=== PATIENT | female | born 1995 | race Caucasian/White ===

== ENCOUNTER 2022-07-11 15:56 | Emergency (ER) | payer MEDICAID, SELFPAY ==
--- NOTE | 2022-07-11 16:24 | ECG_ITS ---
APPROVED REPORT Exam: Resting ECG HR:118 bpm ECG Measurements Heart Rate [address] 141 P 38 QRSd 74 QRS 47 QT 318 T 26 QTc 388 Conclusion SINUS TACHYCARDIA LOW QRS VOLTAGE IN PRECORDIAL LEADS [QRS DEFLECTION < 1.0 mV IN CHEST LEADS] NONSPECIFIC T-WAVE ABNORMALITY ABNORMAL RHYTHM ECG UNCONFIRMED REPORT Electronically signed by : Tulio Hidalgo MD 07/12/2022 14:13:10
[2022-07-11 16:31] VITALS: BP 121/85; PULSE 126; RESP 16; TEMP 37.8; O2SAT 98; BMI 29.3
[2022-07-11 16:46] LABS: Microscopic, Urine URINE MICROSCOPIC (MICROSCOPIC)
[2022-07-11 16:51] LABS: Basophils % 0.4 % (0.1-2.0); Eosinophils # 0.1 K/mm3 (0.0-0.4); Hematocrit 42.5 % (37.0-47.0); Hemoglobin 14.2 g/dL (12.2-16.2); Lymphocytes # 0.4 K/mm3 (0.7-4.5); Lymphocytes % 4.1 % (10-50); Mean Corpuscular HGB Conc 33.5 g/dL (31.8-35.4); Mean Corpuscular Hemoglobin 27.3 pg (27.0-31.2); Mean Corpuscular Volume 81.6 fl (81-99); Mean Platelet Volume 10.3 fl (7.4-10.4); Monocytes # 0.2 K/mm3 (0.1-1.0); Monocytes % 1.8 % (1.7-9.3); Neutrophils # 8.9 K/mm3 (1.8-7.8); Neutrophils % 92.7 % (37.0-80.0); Platelet Count 210 K/mm3 (142-424); Red Blood Count 5.21 M/mm3 (4.20-5.40); Red Cell Distribution Width 14.6 % (11.5-17.5); White Blood Count 9.6 K/mm3 (4.8-10.8)
[2022-07-11 16:52] LABS: Chloride 107 mmol/L (98-107)
[2022-07-11 16:54] LABS: Blood Urea Nitrogen 13 mg/dl (7-17); Creatinine Clearance Estimated 118 mL/min (50-200); Estimated Glomerular Filt Rate 77 ml/min (>60); GFR (African American) 93 ML/MIN (>60)
[2022-07-11 16:55] LABS: Alanine Aminotransferase 20 U/L (12-78); Albumin Level 4.6 g/dl (3.5-5.0); Albumin/Globulin Ratio 1.2 (1.1-1.8); Alkaline Phosphatase 72 U/L (38-126); Aspartate Amino Transferase 40 U/L (14-36); Bilirubin,Total 0.7 mg/dl (0.2-1.3); Carbon Dioxide 24 mmol/L (22.0-30.0); Globulin 3.9 g/dL (1.3-3.2); Total Protein,Serum 8.5 g/dl (6.3-8.2)
[2022-07-11 16:56] LABS: Calcium 8.6 mg/dl (8.4-10.2); Glucose 144 mg/dl (74-100); MANUAL DIFFERENTIAL MANUAL DIFFERENTIAL (MANUAL DIFF)
[2022-07-11 17:00] VITALS: BP 107/78; PULSE 118; O2SAT 98
[2022-07-11 17:00] LABS: Appearance,Urine CLEAR (Clear); Blood, Urine Negative (Negative); Color,Urine YELLOW (Yellow); Glucose,Urine (UA) Negative (Negative); Ketones,Urine Negative (Negative); Leukocyte Esterase,Urine Negative (Negative); Nitrate,Urine Negative (Negative); PH,Urine 5.5 (5.0-8.5); Protein,Urine Negative (Negative); Specific Gravity, Urine >= 1.030 (1.005-1.030); Urobilinogen,Urine 0.2 EU/dl (0.2)
[2022-07-11 17:08] LABS: Bilirubin,Urine 2+ (Negative)
[2022-07-11 17:09] LABS: Bacteria,Urine Trace /lpf; Urine Pregnancy, HCG Qual. Negative (Negative)
[2022-07-11 17:16] LABS: Sodium 139 mmol/L (136-145)
--- NOTE | 2022-07-11 17:24 | HMH.EDGENADL ---
Discharge Plan Disposition Patient Disposition: Home, Self-Care Condition: Good Prescriptions Prescriptions: New ondansetron HCl 4 mg tablet 4 mg PO DAILY PRN (Reason: nausea and vomiting) Qty: 10 0RF Referrals Follow up/Referrals: Provider,Referral, [Primary Care Provider] - See instructions Activity Restrictions/Add. Instructions Additional Instructions/Restrictions: Follow-up with your primary care provider guarding this visit to the emergency department and further management to ensure improvement in symptoms. Be sure to stay hydrated. Tylenol and Motrin every 6 hours with food and water to prevent GI upset to treat fevers, body aches. Take Zofran every 6 hours as needed for nausea and vomiting. Clinical Impressions Clinical Impression: Vomiting and diarrhea Discharge ED Provider: Lefty Yang General Adult HPI General Chief complaint: Dizziness Stated complaint: Dizziness,Vomiting Time Seen by Provider: 07/11/22 16:29 Mode of Arrival: Wheelchair Source of Information: Patient Limitations: No Limitations Description of Symptoms (Recalled from ER Triage Doc. by RN): pt reports dizziness, nausea, that began this am. History of Present Illness HPI narrative: Is a 26-year-old female with history of , cholecystectomy who is presenting with vomiting, nausea, abdominal pain. Patient states that she began having mild epigastric abdominal pain accompanied by numerous episodes of vomiting is nonbloody nonbilious that started this morning. Abdominal pain is mild in intensity, epigastric, does not radiate, associated with vomiting. Denies diarrhea, fevers, chills, chest pain, shortness of breath, cough, sore throat. She has had no urinary frequency, urgency, dysuria, hematuria, hematochezia, or constipation. Patient has been unable to keep down much in terms of solids or liquids, so came to the ER for further evaluation. Related Data Previous Rx's Medication Instructions Recorded ondansetron HCl 4 mg tablet 4 mg PO DAILY PRN nausea and 07/11/22 vomiting #10 tabs Allergies Allergy/AdvReac Type Severity Reaction Status Date / Time tramadol Allergy Verified 07/11/22 16:35 [facility] Disclaimer: The information contained in this section may have been updated after the patient was seen, as this information can be updated by other users. Social History Smoking Status: Never smoker alcohol intake: never current occupational status: employed Travel in the last 8 weeks: None ROS Obtained: Yes All systems reviewed & no additional complaints except as documented Physical Exam General General appearance: alert and in no apparent distress Head Head exam: atraumatic, normocephalic and normal inspection Eye Eye exam: Present normal appearance, PERRL and EOMI ENT ENT exam: Present normal exam, normal oropharynx, mucous membranes moist, TM's normal bilaterally and normal external ear exam Neck Neck exam: Present normal inspection, full ROM and trachea midline; Absent meningismus or lymphadenopathy Chest Chest inspection: Present normal inspection and symmetric chest wall rise; Absent tenderness Respiratory Respiratory exam: Present normal lung sounds bilaterally; Absent respiratory distress Cardiovascular Cardiovascular exam: Present regular rate and normal rhythm; Absent JVD Abdominal Exam Abdominal exam: Present soft and normal bowel sounds; Absent distention, tenderness or guarding Extremities Exam Extremities exam: Present normal inspection, full ROM and normal capillary refill; Absent calf tenderness Back Exam Back exam: Present normal inspection; Absent tenderness Neurological Exam Neurological exam: Present alert and oriented X3 Psychiatric Psychiatric exam: Present normal affect and normal mood Skin Skin exam: Present warm, dry, intact and normal color Lymphatic Lymphatic Findings: no adenopathy Medical Decision Making Medical Records Medical records reviewed: Yes I re
[2022-07-11 17:30] VITALS: BP 110/73; PULSE 108; RESP 18; O2SAT 100
[2022-07-11 17:48] LABS: Lymphocytes % 7 % (10-50); Monocytes % 1 % (2-9); Neutrophils % 92 % (42-76); Platelet Estimate Normal; RBC Morphology Normal; Total Cells Counted 100
--- NOTE | 2022-07-11 18:06 | PC.NURSE ---
REPEAT TEMP 100.2
[2022-07-11 18:11] LABS: Coronavirus 19, PCR Not Detected (NotDetected); Influenza A, PCR Not Detected (NotDetected); Influenza B, PCR Not Detected (NotDetected)
--- NOTE | 2022-07-11 18:56 | CT_ITS ---
PROCEDURE INFORMATION: Exam: CT Abdomen And Pelvis With Contrast Exam date and time: 07/11/2022 7:22 PM Age: 26 years old Clinical indication: Abdominal pain; Flank; Right lower quadrant (rlq); Prior surgery; Additional info: Rlq and R flank pain TECHNIQUE: Imaging protocol: Computed tomography of the abdomen and pelvis with contrast. Radiation optimization: All CT scans at this facility use at least one of these dose optimization techniques: automated exposure control; mA and/or kV adjustment per patient size (includes targeted exams where dose is matched to clinical indication); or iterative reconstruction. Contrast material: ISOVUE; Contrast volume: 75 ml; Contrast route: IV; REPORTING DATA: Count of CT and Cardiac NM exams in prior 12 months: This patient has received 0 known CTs and 0 known cardiac nuclear medicine studies in the 12 months prior to the current study. COMPARISON: No relevant prior studies available. FINDINGS: Liver: Unremarkable. Gallbladder and bile ducts: Status post cholecystectomy. Pancreas: Unremarkable. Spleen: Unremarkable. Adrenal glands: Unremarkable. Kidneys and ureters: Unremarkable. Stomach and bowel: No evidence of bowel obstruction or other acute gastrointestinal pathology. Appendix: Appendix is visualized and is normal. Intraperitoneal space: Trace simple, low-density free fluid in the pelvis, likely physiologic. No pneumoperitoneum. Vasculature: Unremarkable. Lymph nodes: Unremarkable. Urinary bladder: Unremarkable. Reproductive: Unremarkable. Bones/joints: No acute osseous abnormality. Soft tissues: Unremarkable. IMPRESSION: No acute findings in the abdomen or pelvis.
--- NOTE | 2022-07-11 18:59 | PC.NURSE ---
rad notified of ct order
[2022-07-11 19:00] VITALS: BP 119/86; PULSE 118; O2SAT 97
[2022-07-11 19:30] VITALS: BP 122/84; PULSE 113; O2SAT 97
[2022-07-11 20:24] VITALS: BP 122/84; PULSE 110; RESP 18; TEMP 36.6; O2SAT 98
== END 2022-07-11 20:43 | disposition home or self-care (01) ==
LOC: UTC 16:09 → ER 16:10
PROVIDERS: Emergency Provider Emergency Medicine
DX: R11.2 Nausea with vomiting, unspecified (principal); R19.7 Diarrhea, unspecified; R42 Dizziness and giddiness; R10.13 Epigastric pain; Z90.49 Acquired absence of other specified parts of digestive tract; Z20.822 Contact with and (suspected) exposure to COVID-19
CPT/HCPCS: 74177; 80053; 81001; 81025; 85007; 85025; 93005; 96361; 96374; 96375; 96376; 99285; C9803; J2405; Q9967; U0003; U0005

== ENCOUNTER 2023-03-01 17:23 | Emergency (ER) | payer MEDICAID, SELFPAY ==
[2023-03-01 17:24] VITALS: BP 127/92; PULSE 92; RESP 18; TEMP 36.7; O2SAT 100; BMI 29.2
[2023-03-01 17:59] LABS: Microscopic, Urine URINE MICROSCOPIC (MICROSCOPIC)
[2023-03-01 18:04] LABS: Basophils # 0.1 K/mm3 (0-0.2); Basophils % 0.8 % (0.1-2.0); Eosinophils # 0.2 K/mm3 (0.0-0.4); Hematocrit 41.9 % (37.0-47.0); Hemoglobin 14.5 g/dL (12.2-16.2); Lymphocytes # 2.5 K/mm3 (0.7-4.5); Mean Corpuscular HGB Conc 34.7 g/dL (31.8-35.4); Mean Corpuscular Hemoglobin 29.7 pg (27.0-31.2); Mean Corpuscular Volume 85.6 fl (81-99); Mean Platelet Volume 9.3 fl (7.4-10.4); Monocytes # 0.4 K/mm3 (0.1-1.0); Monocytes % 5.1 % (1.7-9.3); Neutrophils # 4.6 K/mm3 (1.8-7.8); Neutrophils % 60.2 % (37.0-80.0); Platelet Count 240 K/mm3 (142-424); Red Cell Distribution Width 12.8 % (11.5-17.5); White Blood Count 7.7 K/mm3 (4.8-10.8)
[2023-03-01 18:09] LABS: Alanine Aminotransferase 18 U/L (12-78); Albumin Level 4.7 g/dl (3.5-5.0); Albumin/Globulin Ratio 1.2 (1.1-1.8); Alkaline Phosphatase 53 U/L (38-126); Aspartate Amino Transferase 34 U/L (14-36); Bilirubin,Total 0.7 mg/dl (0.2-1.3); Blood Urea Nitrogen 15 mg/dl (7-17); Calcium 9.8 mg/dl (8.4-10.2); Carbon Dioxide 29 mmol/L (22.0-30.0); Chloride 101 mmol/L (98-107); Creatinine Clearance Estimated 131 mL/min (50-200); Estimated Glomerular Filt Rate 87 ml/min (>60); GFR (African American) 106 ML/MIN (>60); Glucose 92 mg/dl (74-100); Lipase 98 U/L (23-300); Sodium 141 mmol/L (136-145); Total Protein,Serum 8.7 g/dl (6.3-8.2)
[2023-03-01 18:15] LABS: Appearance,Urine CLEAR (Clear); Bilirubin,Urine Negative (Negative); Blood, Urine Negative (Negative); Color,Urine YELLOW (Yellow); Glucose,Urine (UA) Negative (Negative); Ketones,Urine Negative (Negative); Leukocyte Esterase,Urine Negative (Negative); Nitrate,Urine Negative (Negative); Protein,Urine Negative (Negative); Specific Gravity, Urine 1.015 (1.005-1.030)
--- NOTE | 2023-03-01 18:16 | HMH.EDGENADL ---
Discharge Plan Disposition Patient Disposition: Home, Self-Care Prescriptions Prescriptions: New prochlorperazine maleate [Compazine] 10 mg tablet 10 mg PO Q6H PRN (Reason: nausea and vomiting) 1 Days Qty: 20 0RF No Action ondansetron HCl 4 mg tablet 4 mg PO DAILY PRN (Reason: nausea and vomiting) Qty: 10 0RF Referrals Follow up/Referrals: Provider,Referral, MD [Primary Care Provider] - See instructions Activity Restrictions/Add. Instructions Additional Instructions/Restrictions: Call your family doctor to establish care for this visit to the emergency department and schedule follow-up within 48 hours to ensure improvement. If you have any worsening of your condition or any other concerning signs or symptoms, return to the emergency department or your primary care doctor for further evaluation. Clinical Impressions Clinical Impression: Gastroenteritis, Abdominal pain Instructions Patient Instructions: DI for Acute Abdominal Pain Discharge ED Provider: Lefty Yang General Adult HPI General Chief complaint: Abdominal Pain Stated complaint: lower abd pain Time Seen by Provider: 03/01/23 17:34 Mode of Arrival: Ambulatory Source of Information: Patient Limitations: No Limitations Description of Symptoms (Recalled from ER Triage Doc. by RN): c/o lower right quad pain that goes into her pelvic area for 3 days, one week ago she had nausea and has been vomiting. Pt states that she was having sex last night and her stomach felt tighter and she felt pain in her stomach which is not usual. Denies any vaginal bleeding, discharge or burning with urination. History of Present Illness HPI narrative: 27-year-old female history of cholecystectomy, section presenting with abdominal pain/pelvic pain. Patient states that started 3 days ago. Started with nausea and nonbloody, nonbilious vomiting x3 episodes over 3 days. Started having right lower quadrant abdominal pain radiating downward into her pelvis. No abnormal vaginal discharge or bleeding. Last period was November of this year, approximately 4 months ago, patient states this is normal for her. Denies flank pain, dysuria, hematuria, frequency urgency, diarrhea, constipation, fevers or chills, or any other concerns. Currently sexually active and does not use protection Related Data Previous Rx's Medication Instructions Recorded ondansetron HCl 4 mg tablet 4 mg PO DAILY PRN nausea and 07/11/22 vomiting #10 tabs prochlorperazine maleate 10 mg 10 mg PO Q6H PRN nausea and 10/12/23 tablet (Compazine) vomiting 24 hours #20 tabs Allergies Allergy/AdvReac Type Severity Reaction Status Date / Time tramadol Allergy Verified 07/11/22 16:35 [facility] Disclaimer: The information contained in this section may have been updated after the patient was seen, as this information can be updated by other users. Social History (Updated 07/11/22 @ 20:20 by Lefty aYng MD) Smoking Status: Never smoker alcohol intake: never current occupational status: employed Travel in the last 8 weeks: None ROS Obtained: Yes All systems reviewed & no additional complaints except as documented Physical Exam General General appearance: alert and in no apparent distress Head Head exam: atraumatic and normocephalic Eye Eye exam: Present normal appearance, PERRL and EOMI ENT ENT exam: Present mucous membranes moist Neck Neck exam: Present normal inspection, full ROM and trachea midline Respiratory Respiratory exam: Absent respiratory distress, wheezes, stridor, accessory muscle use or prolonged expiratory phase Cardiovascular Cardiovascular exam: Present normal rhythm Abdominal Exam Abdominal exam: Present soft and tenderness; Absent distention, guarding, rebound, rigidity or normal bowel sounds Abdominal tenderness: Present suprapubic and mild; Absent RUQ, RLQ, LUQ or LLQ Extremities Exam Extremities exam: Absent edema Neurological Exam Neurological exam: Pr
[2023-03-01 18:18] LABS: RBC,Urine Occasional #/hpf (0-3); Squamous Epithelial Cell,Urine Occasional #/hpf (0-5)
[2023-03-01 18:28] LABS: HCG,Quantitative < 2 mIU/ml (0-5.42)
[2023-03-01 18:30] VITALS: BP 91/61; PULSE 107; O2SAT 97
--- NOTE | 2023-03-01 18:52 | PC.NURSE ---
Rounded on pt. Pt made aware of need to collect more urine. No needs voiced.
[2023-03-01 19:22] VITALS: BP 112/76; PULSE 94; O2SAT 99
[2023-03-01 19:30] VITALS: BP 100/78; PULSE 94; O2SAT 98
[2023-03-01 19:56] VITALS: BP 100/78; PULSE 84; RESP 18; TEMP 36.6; O2SAT 98
== END 2023-03-01 19:50 | disposition home or self-care (01) ==
PROVIDERS: Emergency Provider Emergency Medicine
DX: R10.30 Lower abdominal pain, unspecified (principal); K52.9 Noninfective gastroenteritis and colitis, unspecified; R11.2 Nausea with vomiting, unspecified
CPT/HCPCS: 80053; 81001; 83690; 84702; 85025; 96361; 96374; 96375; 99284; J0131

== ENCOUNTER 2023-08-25 19:28 | Emergency (ER) | payer MEDICAID, SELFPAY ==
[2023-08-25 19:29] VITALS: BP 131/91; PULSE 100; RESP 16; TEMP 36.6; O2SAT 99; BMI 28.6
--- NOTE | 2023-08-25 19:41 | XR_ITS ---
PROCEDURE INFORMATION: Exam: XR Left Hip Exam date and time: 08/25/2023 7:52 PM Age: 27 years old Clinical indication: Hip pain; Left hip; Additional info: Fall, L hip pain TECHNIQUE: Imaging protocol: Radiologic exam of the left hip. Views: 2 or 3 views hip with pelvis when performed. COMPARISON: CT ABDOMEN PELVIS W CON 07/11/2022 7:22 PM FINDINGS: Bones/joints: No acute fracture or dislocation. The SI joints, hip joints and pubic symphysis are unremarkable. Normal bone mineralization.. Soft tissues: Unremarkable. IMPRESSION: No acute findings.
--- NOTE | 2023-08-25 19:46 | HMH.EDGENADL ---
Discharge Plan Disposition Patient Disposition: Home, Self-Care Prescriptions Prescriptions: New dexamethasone 6 mg tablet 6 mg PO DAILY Qty: 5 0RF methocarbamol 750 mg tablet 1,500 mg PO TID 5 Days Qty: 30 0RF No Action ondansetron HCl 4 mg tablet 4 mg PO DAILY PRN (Reason: nausea and vomiting) Qty: 10 0RF prochlorperazine maleate [Compazine] 10 mg tablet 10 mg PO Q6H PRN (Reason: nausea and vomiting) 1 Days Qty: 20 0RF Referrals Follow up/Referrals: Provider,MD Vania [Primary Care Provider] - See instructions Elias Oh MD [Staff Physician] - See instructions Luis E Main DO [Staff Physician] - See instructions Activity Restrictions/Add. Instructions Additional Instructions/Restrictions: Call your family doctor to establish care for this visit to the emergency department and schedule follow-up within 48 hours to ensure improvement. If you have any worsening of your condition or any other concerning signs or symptoms, return to the emergency department or your primary care doctor for further evaluation. Take Tylenol 1000 mg every 6 hours (4 times daily) and ibuprofen 400 mg every 6 hours (4 times daily) as needed with food and water to prevent GI upset and kidney damage. Clinical Impressions Clinical Impression: Left sciatic nerve pain Discharge ED Provider: Lefty Yang General Adult HPI General Chief complaint: Extremity Injury, Lower Stated complaint: hip and back pain Time Seen by Provider: 08/25/23 19:30 Mode of Arrival: Wheelchair Source of Information: Patient Limitations: No Limitations Description of Symptoms (Recalled from ER Triage Doc. by RN): pt states a couple of days ago was stepping over baby gate and lt leg didnt clear gate and she fell. pt c/o lt hip and lower back pain radiating down lt leg History of Present Illness HPI narrative: This is a 27-year-old female with history of chronic pain after epidural presenting with back and left buttock pain. Atraumatic. Patient does state that she fell a couple days prior to this visit fell on her left side. States that she thinks it may be related to that. She is having back pain radiate from her mid back down the left flank into the left buttock and down left leg. No weakness. No bowel or dysfunction no other red flag signs. Please note that above description of symptoms, in this electronic medical record under categorization of recalled from ER triage doctor by RN are reflective of an initial nursing assessment, however, is not reflective of my full history and physical exam that was personally taken and clarified. Consequentially, this preceding description of symptoms, which may include the patient's categorized chief complaint in the EMR, do not reflect my personal clinical impression, and the ultimate description of history of present illness and patient stated complaints should be deferred to this section of the note. Unless stated otherwise or congruent with this section of the note, additional signs, symptoms, or incongruence should be interpreted as inaccurate with my clinical impression. Related Data Previous Rx's Medication Instructions Recorded ondansetron HCl 4 mg tablet 4 mg PO DAILY PRN nausea and 07/11/22 vomiting #10 tabs prochlorperazine maleate 10 mg 10 mg PO Q6H PRN nausea and 03/01/23 tablet (Compazine) vomiting 24 hours #20 tabs dexamethasone 6 mg tablet 6 mg PO DAILY #5 tabs 08/25/23 methocarbamol 750 mg tablet 1,500 mg (2 x 750 mg) PO TID 5 08/25/23 days #30 tabs Allergies Allergy/AdvReac Type Severity Reaction Status Date / Time tramadol Allergy Verified 07/11/22 16:35 [facility] Disclaimer: The information contained in this section may have been updated after the patient was seen, as this information can be updated by other users. Social History (Updated 07/11/22 @ 20:20 by Lefty Yang MD) Smoking Status: Never smoker alcohol intake: never current occupational status: employed Travel in the last 8 weeks: None ROS Obtained: Yes All systems reviewed & no additional complaints except as documented Physical Exam General General appearance: alert and in no apparent distress Head Head exam: atraumatic and normocephalic Eye Eye exam: Present normal appearance, PERRL and EOMI ENT ENT exam: Present mucous membranes moist Neck Neck exam: Present normal inspection, full ROM and trachea midline Respiratory Respiratory exam: Absent respiratory distress, wheezes, stridor, accessory muscle use or prolonged expiratory phase Cardiovascular Cardiovascular exam: Present normal rhythm Abdominal Exam Abdominal exam: Present soft; Absent distention, tenderness, guarding, rebound or rigidity Extremities Exam Extremities exam: Absent edema Back Exam Back exam: Present paraspinal tenderness (Lumbar spinal), vertebral tenderness (Midline lumbar spine) and straight leg raise (L) Neurological Exam Neurological exam: Present alert, oriented X3, CN II-XII intact and normal gait; Absent motor sensory deficit Skin Skin exam: Present warm and dry; Absent diaphoresis or erythema Medical Decision Making Medical Records Medical records reviewed: Yes I reviewed the patient's medical records. Jordan Inquiry Pt receiving controlled substance: No Jordan was queried for this patient: No Vital Signs: 08/25/23 19:29 Temperature 97.8 F Temperature Source Oral Pulse Rate [Right] 100 H Respiratory Rate 16 Blood Pressure [Right Arm] 131/91 H Blood Pressure Mean [Right Arm] 104 02 Sat by Pulse Oximetry 99 Lab Data Lab Results 08/25/23 20:25: Urine Color Yellow, Urine Appearance Clear, Urine pH 6.0, Ur Specific [place] 1.020, Urine Protein Negative, Urine Glucose (UA) Negative, Urine Ketones Negative, Urine Blood Negative, Urine Nitrate Negative, Urine Bilirubin Negative, Urine Urobilinogen 0.2, Ur Leukocyte Esterase Negative, Urine RBC None, Urine WBC None, Ur Squamous Epith Cells 5-10, Urine Bacteria Trace, Urine HCG, Qual Negative Orders (Tests/Meds): ED MEDICATIONS Discontinued Medications Generic Name Dose Route Start Last Admin Trade Name Freq PRN Reason Stop Dose Admin Dexamethasone 10 mg 08/25/23 19:41 08/25/23 19:50 Dexamethasone 4mg Tablet PO 08/25/23 19:42 10 mg ONCE ONE Administration Methocarbamol 750 mg 08/25/23 19:41 08/25/23 19:51 Methocarbamol 500mg Tablet PO 08/25/23 19:42 750 mg ONCE ONE Administration ORDERS Category Date Time Status Hip XR left minimum 2 views [XR hip LT 2-3V w/pelvis] Exams 08/25/23 19:41 Taken Stat UA [Urinalysis and Microscopic] Stat Lab 08/25/23 20:25 Completed Urine , HCG Qual. Stat Lab 08/25/23 20:25 Completed Medical Decision Narrative: This is a 27-year-old female with history of chronic pain after epidural presenting with back and left buttock pain. Atraumatic. Patient does state that she fell a couple days prior to this visit fell on her left side. States that she thinks it may be related to that. She is having back pain radiate from her mid back down the left flank into the left buttock and down left leg. No weakness. No bowel or dysfunction no other red flag signs. On arrival, patient hemodynamically stable, ambulatory, but hurting, so placed in wheelchair. Midline and paraspinal lumbar spinal tenderness. Neurovascular intact lower extremities. Straight leg positive. Differential includes sciatic nerve pain, radiculopathy, sciatica, disc herniation, hip pathology, nephrolithiasis, , among others. Patient given dexamethasone and methocarbamol. X-ray negative, urine without UTI or . On reevaluation, patient still in pain. Reassurance given. Because patient at baseline without signs or symptoms of clinical decompensation, deemed appropriate for discharge. Results were relayed to patient who voiced understanding and were agreeable to outpatient management and follow up. I discussed my clinical impression with patient and answered all questions. At this time, the evidence for any other entities in the differential is insufficient to warrant any further testing or ED observation. This was explained as well. Advisory was given that persistent or worsening symptoms require further evaluation. I confirmed the understanding of this discussion. Critical Care Critical Care Time Critical Care Time: No
[2023-08-25] MEDS: DEXAMETHASONE 4MG TABLET 10 MG PO (19:50)
[2023-08-25] MEDS: METHOCARBAMOL 500MG TABLET 750 MG PO (19:51)
[2023-08-25 20:30] LABS: Microscopic, Urine URINE MICROSCOPIC (MICROSCOPIC)
[2023-08-25 20:33] LABS: Appearance,Urine CLEAR (Clear); Bilirubin,Urine Negative (Negative); Blood, Urine Negative (Negative); Color,Urine YELLOW (Yellow); Glucose,Urine (UA) Negative (Negative); Ketones,Urine Negative (Negative); Leukocyte Esterase,Urine Negative (Negative); Nitrate,Urine Negative (Negative); Protein,Urine Negative (Negative); Urobilinogen,Urine 0.2 EU/dl (0.2)
[2023-08-25 20:35] LABS: Urine Pregnancy, HCG Qual. Negative (Negative)
[2023-08-25 20:48] LABS: Bacteria,Urine Trace /lpf
[2023-08-25 21:22] VITALS: BP 122/88; PULSE 82; RESP 18; TEMP 36.8; O2SAT 99
== END 2023-08-25 21:23 | disposition home or self-care (01) ==
PROVIDERS: Emergency Provider Emergency Medicine
DX: M54.32 Sciatica, left side (principal); W19.XXXA Unspecified fall, initial encounter
CPT/HCPCS: 73502; 81001; 81025; 99283

== ENCOUNTER 2023-10-10 15:15 | Outpatient (CLI) | payer MEDICAID, SELFPAY | END 2023-10-10 23:59 | disposition home or self-care (01) | LOC: LAB 15:16 | PROVIDERS: PCP Nurse Practitioner Family; Visit Provider Obstetrics & Gynecology | DX: N64.3 Galactorrhea not associated with childbirth (principal) | CPT/HCPCS: 36415; 84146 ==

== ENCOUNTER 2024-02-01 13:23 | Outpatient (CLI) | payer MEDICAID, SELFPAY ==
[2024-02-01 14:17] LABS: HCG,Quantitative < 2 mIU/ml (0-5.42)
[2024-02-02 09:57] LABS: Progesterone 0.1 ng/mL (.)
== END 2024-02-01 23:59 | disposition home or self-care (01) ==
LOC: LAB 13:24
PROVIDERS: PCP Nurse Practitioner Family; Visit Provider Obstetrics & Gynecology
DX: N92.6 Irregular menstruation, unspecified (principal)
CPT/HCPCS: 36415; 84144; 84702

== ENCOUNTER 2024-02-06 11:56 | Emergency (ER) | payer MEDICAID, SELFPAY ==
[2024-02-06 11:58] VITALS: BP 122/89; PULSE 106; RESP 13; TEMP 36.4; O2SAT 100; BMI 24.1
--- NOTE | 2024-02-06 12:02 | ECG_ITS ---
APPROVED REPORT Exam: Resting ECG HR:101 bpm ECG Measurements Heart Rate 101 AXES MS 125 P 51 QRSd 79 QRS 78 QT 335 T 52 QTc 393 Conclusion SINUS TACHYCARDIA ABNORMAL RHYTHM ECG UNCONFIRMED REPORT Electronically signed by : MARK HUDDLESTON, 02/08/2024 06:39:43
--- NOTE | 2024-02-06 12:04 | PC.NURSE ---
Dr. Yang at bedside for pt eval
--- NOTE | 2024-02-06 12:13 | XR_ITS ---
FINAL REPORT TECHNIQUE: Chest PA & Lateral CLINICAL HISTORY: Shortness of breath, recent covid COMPARISON: None FINDINGS: 2 views of the chest were performed. The heart size is normal. The mediastinum is within normal limits. There is no acute cardiopulmonary process. There are no pleural effusions. There is no pneumothorax. The bony thorax appears intact. IMPRESSION: No acute cardiopulmonary process. Reviewed, Interpreted and Dictated by Clark Peace MD Transcribed by Bernadette Pan Authenticated and [facility]
--- NOTE | 2024-02-06 12:20 | PC.NURSE ---
RT notified of VBG order
--- NOTE | 2024-02-06 12:25 | [facility].EDCP ---
Discharge Plan Disposition Patient Disposition: Home, Self-Care Prescriptions Prescriptions: New prednisone 20 mg tablet 40 mg PO DAILY 5 Days Qty: 10 0RF No Action bupropion HCl 150 mg tablet extended release 24 hr PO Patient Comments: TAKE 1 TABLET BY MOUTH EVERY 24 HOURS omeprazole 20 mg capsule,delayed release(DR/EC) 20 mg PO DAILY Patient Comments: TAKE 1 CAPSULE BY MOUTH ONCE DAILY Vraylar 1.5 mg capsule 1.5 mg PO DAILY Patient Comments: TAKE 1 CAPSULE BY MOUTH ONCE DAILY norethindrone-e.estradiol-iron [Loestrin Fe 06/09 (28-Day)] 1 mg-20 mcg (21)/75 mg (7) tablet 1 tab PO DAILY Qty: 84 3RF methocarbamol 750 mg tablet 1,500 mg PO TID 5 Days Qty: 30 0RF Referrals Follow up/Referrals: Shania Mtz APRN [Primary Care Provider] - See instructions Activity Restrictions/Add. Instructions Additional Instructions/Restrictions: Call your family doctor to establish care for this visit to the emergency department and schedule follow-up within 48 hours to ensure improvement. If you have any worsening of your condition or any other concerning signs or symptoms, return to the emergency department or your primary care doctor for further evaluation. Clinical Impressions Clinical Impression: Bronchitis Print Language Print Language: Uzbek Discharge ED Provider: Lefty Yang General Chief Complaint: Shortness of Breath/Dyspnea Stated Complaint: SOA, had covid 02/01/24, inhaler not work, dizzy Time Seen by Provider: 02/06/24 12:01 Mode of Arrival: Ambulatory Source of Information: Patient Limitations: No Limitations Description of Symptoms (Recalled from ER Triage Doc. by RN): pt presents to ED with c/o shortness of air. pt reports pain with deep inspiration and excertion. pt reports diagnosis of covid in the past few days. History of Present Illness HPI narrative: Please note that above description of symptoms, in this electronic medical record under categorization of recalled from ER triage doctor by RN are reflective of an initial nursing assessment, however, is not reflective of my full history and physical exam that was personally taken and clarified. Consequentially, this preceding description of symptoms, which may include the patient's categorized chief complaint in the EMR, do not reflect my personal clinical impression, and the ultimate description of history of present illness and patient stated complaints should be deferred to this section of the note. Unless stated otherwise or congruent with this section of the note, additional signs, symptoms, or incongruence should be interpreted as inaccurate with my clinical impression. Related Data Home Medications ?Medication ?Instructions ?Recorded ?Confirmed bupropion HCl 150 mg 24 hr tablet, mg PO 10/10/23 10/10/23 extended release cariprazine 1.5 mg capsule 1.5 mg PO DAILY 10/10/23 10/10/23 (Vraylar) omeprazole 20 mg capsule,delayed 20 mg PO DAILY 10/10/23 10/10/23 release Previous Rx's ?Medication ?Instructions ?Recorded methocarbamol 750 mg tablet 1,500 mg (2 x 750 mg) PO TID 5 08/25/23 days #30 tabs norethindrone 1 mg-ethinyl 1 tab PO DAILY #84 tabs 10/10/23 estradiol 20 mcg (21)-iron 75 mg (7) tablet (Loestrin Fe 06/09 (28-Day)) prednisone 20 mg tablet 40 mg (2 x 20 mg) PO DAILY 5 days 02/06/24 #10 tabs Allergies Allergy/AdvReac Type Severity Reaction Status Date / Time tramadol Allergy Verified 02/06/24 12:08 [facility] Disclaimer: The information contained in this section may have been updated after the patient was seen, as this information can be updated by other users. Medical History (Updated 02/06/24 @ 13:47 by Lefty Yang MD) Galactorrhea History of anemia Hypothyroid ADHD Sciatica Depression Anxiety Surgical History (Updated 10/10/23 @ 14:10 by KAPIL Kahn) History of surgery on lower extremity History of cholecystectomy History of Family History (Updated 10/10/23 @ 14:13 by KAPIL Kahn) Grandfather Cancer Kidney disease Family/Other Cancer Mother Hypertension Father Hypertension Stroke Social History (Updated 10/10/23 @ 14:14 by KAPIL Kahn) Smoking Status: Never smoker alcohol intake: current alcohol intake frequency: holidays/special occasions only current occupational status: employed Travel in the last 8 weeks: None ROS Obtained: Yes All systems reviewed & no additional complaints except as documented Physical Exam General General appearance: alert and anxious Neck Neck exam: Present trachea midline Chest Chest inspection: Present normal inspection and symmetric chest wall rise Respiratory Respiratory exam: Present normal lung sounds bilaterally and other (Hyperventilating, no obvious respiratory distress); Absent respiratory distress, wheezes, stridor, accessory muscle use or prolonged expiratory phase Cardiovascular Cardiovascular exam: Present normal rhythm, tachycardia and other (Pulses equal and symmetric in upper and lower extremities) Extremities Exam Extremities exam: Absent edema Neurological Exam Neurological exam: Present alert, oriented X3 and CN II-XII intact Skin Skin exam: Present warm and dry; Absent cyanosis, diaphoresis or pallor HEART Score HEART Score HEART Score assessment performed?: Yes HEART Score: 0 Procedures Limited Ultrasound Indication:: Limited cardiac ultrasound Indication: Chest pain, recent illness, shortness of breath Identified cardiac views: -Cardiac parasternal long axis -Cardiac parasternal short axis Findings: -Cardiac activity present -Gross wall motion normal -Pericardial effusion absent -Right heart strain absent Impression: -Normal cardiac ultrasound without evidence of right heart strain, pericardial effusion, or abnormal motion Images were saved to permanent archive The study was technically adequate CPT: 54329 This study was performed by me, and I personally interpreted all images/videos. Based on my clinical judgement, these images were adequate and did not necessitate further imaging Critical Care Critical Care Time Critical Care Time: No Medical Decision Making Medical Records Medical records reviewed: Yes I reviewed the patient's medical records. [place] Inquiry Pt receiving controlled substance: No [place] was queried for this patient: No Vital Signs Vital Signs: 02/06/24 11:58 02/06/24 12:30 02/06/24 13:00 Temperature 97.6 F Temperature Source Oral Pulse Rate 99 H 101 H Pulse Rate [Left Radial] 106 H Respiratory Rate 13 15 24 Blood Pressure 107/79 L 116/78 Blood Pressure [Right Arm] 122/89 Blood Pressure Mean [Right Arm] 100 02 Sat by Pulse Oximetry 100 100 98 Oxygen Delivery Method Room Air Lab Data Labs: Lab Results 02/06/24 12:16: WBC 6.1, RBC 4.42, Hgb 12.6, Hct 37.6, MCV 85.0, MCH 28.6, MCHC 33.6, RDW 14.6, Plt Count 201, MPV 9.0, Neut % (Auto) 71.5, Lymph % (Auto) 20.8, Gibson % (Auto) 3.5, Eos % (Auto) 2.6, Baso % (Auto) 1.7, Neut # (Auto) 4.3, Lymph # (Auto) 1.3, Gibson # (Auto) 0.2, Eos # (Auto) 0.2, Baso # (Auto) 0.1, APTT 26.0, D-Dimer 0.35, Sodium 138, Potassium 3.3 L, Chloride 106, Carbon Dioxide 26, Anion Gap 9.3, BUN 15, Creatinine 0.70, Estimated Creat Clear 126, Estimated GFR 101, Est GFR ( Amer) 122, Glucose 111 H, Calcium 8.9, Total Bilirubin 0.6, AST 26, ALT 17, Alkaline Phosphatase 58, Troponin I < 0.01, NT-Pro-B Natriuret Pep < 20.0, Total Protein 7.3, Albumin 4.3, Globulin 3.0, Albumin/Globulin Ratio 1.4, Serum HCG, Qual Negative 02/06/24 12:20: VBG pH 7.37, VBG pCO2 46.5, VBG pO2 35.5, VBG HCO3 26.2, VBG Total CO2 27.6 H, VBG O2 Saturation 66.2, VBG Base Excess 0.8, VBG Lactic Acid 1.6 02/06/24 12:16 02/06/24 12:16 Response Orders (Tests/Meds): ED MEDICATIONS Generic Name Dose Route Start Last Admin Trade Name Freq PRN Reason Stop Dose Admin Sodium Chloride 10 ml 02/06/24 12:18 Sodium Chloride 0.9% 10ml Flush Syringe IV 03/07/24 12:17 NEEDED PRN Maintain IV Site Discontinued Medications Generic Name Dose Route Start Last Admin Trade Name Freq PRN Reason Stop Dose Admin Acetaminophen 1,000 mg 02/06/24 12:27 02/06/24 12:36 Acetaminophen 1,000mg/100ml Vial IV 02/06/24 12:28 1,000 mg ONCE ONE Administration Ketorolac Tromethamine 15 mg 02/06/24 12:27 02/06/24 13:17 Ketorolac 30mg/Ml Vial IV 02/06/24 12:28 15 mg ONCE ONE Administration ORDERS Category Date Time Status CXR 2 view (NOT portable) [XR chest 2V] Stat Exams 02/06/24 12:13 Completed POCUS Point of Care (ER Only) Stat Exams 02/06/24 12:28 Ordered Complete Blood Count Auto Diff Stat Lab 02/06/24 12:16 Completed Comprehensive Metabolic Panel Stat Lab 02/06/24 12:16 Completed D-Dimer Stat Lab 02/06/24 12:16 Completed HIV (1&2) Antibody Rapid Stat Lab 02/06/24 12:16 Received Hep C Ab with Reflex to RNA Stat Lab 02/06/24 12:16 Received NT Pro Brain Natriuretic Pep. Stat Lab 02/06/24 12:16 Completed PTT [Activated Partial Thrombo Time] Stat Lab 02/06/24 12:16 Completed Serum [HCG Qualitative, Serum] Stat Lab 02/06/24 12:16 Completed Troponin I Q3H Lab 02/06/24 15:15 Ordered Troponin I Q3H Lab 02/06/24 18:15 Ordered Troponin I Stat Lab 02/06/24 12:16 Completed Venous Blood Gas Stat RT 02/06/24 12:20 Completed MDM Narrative Medical Decision Narrative: 28-year-old female history of recent COVID presenting with shortness of breath, lightheadedness. She states that she was diagnosed with COVID about a week ago. 2 days prior to this she started feeling short of breath and lightheaded noticing that she was breathing faster. States that she does have midsternal chest pain that is related. Does not radiate, sharp, waxing and waning. Has not noticed anything that makes the symptoms better or worse. Was given an inhaler, this does not seem to be helping. History was obtained via conversation with patient. On arrival, patient hemodynamically stable, alert, oriented x4, appropriate, GCS 15, moving all extremities spontaneously, pupils equal and reactive to light. Full physical exam performed and significant for anxious. Female who is in no acute distress. She is hyperventilating, but no increased work of breathing. Lungs are clear to auscultation anterior and posteriorly bilaterally, cardiac exam without murmurs gallops or rubs. Pulses equal symmetric in upper and lower extremities. Differential includes anxiety, bronchitis, pneumonia, pneumothorax, PE, pericarditis, myocarditis, among others. Patient was given acetaminophen for symptomatic management and correction of underlying abnormalities. Patient placed on continuous cardiac monitoring and continuous pulse ox with initial blood pressure 122/80, heart rate 106, saturation percent on room air. Independent interpretation of EKG shows sinus tachycardia [address] or T wave changes concerning for acute ischemia. No evidence of right heart strain. NH 125, QRS 79, QTc 393. Workup independently interpreted and significant for nonactionable CBC or chemistry. Negative troponin. D-dimer negative. On independent interpretation of imaging, no acute cardiopulmonary airspace disease on chest x-ray. See radiology read for full review of final results. Heart score 0. On reevaluation, patient resting comfortably, no increased work of breathing, still at her baseline. Respiratory rate 20. Given patient presentation, workup, history, this most likely represents bronchitis in the setting of recent COVID diagnosis. Because patient at baseline without signs or symptoms of clinical decompensation, deemed appropriate for discharge. Results were relayed to patient who voiced understanding and were agreeable to outpatient management and follow up. I discussed my clinical impression with patient and answered all questions. At this time, the evidence for any other entities in the differential is insufficient to warrant any further testing or ED observation. This was explained as well. Advisory was given that persistent or worsening symptoms require further evaluation. I confirmed the understanding of this discussion. Living Skills Advisor disclaimer Much of this encounter note is an electronic bar useful or busser spoken language to printed text. Electronic bar useful or busser of the spoken language may permit errors. Although I have reviewed the note, some errors may still exist.
[2024-02-06 12:29] LABS: Basophils # 0.1 K/mm3 (0-0.2); Basophils % 1.7 % (0.1-2.0); Eosinophils # 0.2 K/mm3 (0.0-0.4); Eosinophils % 2.6 % (0.1-12.0); Hematocrit 37.6 % (37.0-47.0); Hemoglobin 12.6 g/dL (12.2-16.2); Lymphocytes # 1.3 K/mm3 (0.7-4.5); Lymphocytes % 20.8 % (10-50); Mean Corpuscular HGB Conc 33.6 g/dL (31.8-35.4); Mean Corpuscular Hemoglobin 28.6 pg (27.0-31.2); Monocytes # 0.2 K/mm3 (0.1-1.0); Monocytes % 3.5 % (1.7-9.3); Neutrophils # 4.3 K/mm3 (1.8-7.8); Neutrophils % 71.5 % (37.0-80.0); Platelet Count 201 K/mm3 (142-424); Red Blood Count 4.42 M/mm3 (4.20-5.40); Red Cell Distribution Width 14.6 % (11.5-17.5); White Blood Count 6.1 K/mm3 (4.8-10.8)
[2024-02-06 12:30] VITALS: BP 107/79; PULSE 99; RESP 15; O2SAT 100
[2024-02-06 12:33] LABS: Albumin Level 4.3 g/dl (3.5-5.0); Chloride 106 mmol/L (98-107); Potassium 3.3 mmoL/L (3.5-5.1); Sodium 138 mmol/L (136-145)
[2024-02-06 12:36] LABS: Alanine Aminotransferase 17 U/L (12-78); Albumin/Globulin Ratio 1.4 (1.1-1.8); Alkaline Phosphatase 58 U/L (38-126); Anion Gap 9.3 mEq/L (5-15); Aspartate Amino Transferase 26 U/L (14-36); Bilirubin,Total 0.6 mg/dl (0.2-1.3); Blood Urea Nitrogen 15 mg/dl (7-17); Calcium 8.9 mg/dl (8.4-10.2); Carbon Dioxide 26 mmol/L (22.0-30.0); Creatinine Clearance Estimated 126 mL/min (50-200); Estimated Glomerular Filt Rate 101 ml/min (>60); GFR (African American) 122 ML/MIN (>60); Glucose 111 mg/dl (74-100); Total Protein,Serum 7.3 g/dl (6.3-8.2)
[2024-02-06] MEDS: ACETAMINOPHEN 1,000MG/100ML VIAL 1000 MG IV (12:36)
[2024-02-06 12:45] LABS: NT Pro Brain Natriuretic Pep. < 20.0 pg/mL (0-125)
--- NOTE | 2024-02-06 12:46 | PC.NURSE ---
pt back in room from x-ray
[2024-02-06 12:53] LABS: Troponin I < 0.01 ng/ml (0.00-0.034)
[2024-02-06 13:00] VITALS: BP 116/78; PULSE 101; RESP 24; O2SAT 98
[2024-02-06 13:07] LABS: D-Dimer 0.35 ug/mL (0.0-0.5)
[2024-02-06 13:11] LABS: HCG Qualitative, Serum Negative (Negative)
[2024-02-06] MEDS: KETOROLAC 30MG/ML VIAL 15 MG IV (13:17)
--- NOTE | 2024-02-06 13:28 | PC.NURSE ---
Called LAB to check status of VBG. Magda advised that no one called. I had previously spoken with Kathy about VBG at 1220.
[2024-02-06 13:40] LABS: Lactate Venous 1.6 mmol/L (0.4-2.0); VBG Base Excess 0.8 mmol/L (-2.4-2.3); VBG HCO3 26.2 mmol/L (23-30); VBG Oxygen Saturation 66.2 % (50-70); VBG PCO2 46.5 mmol/L (35-51); VBG PH 7.37 mmol/L (7.31-7.41); VBG PO2 35.5 mmol/L (28-40); VBG Total CO2 27.6 mmol/L (23-27)
--- NOTE | 2024-02-06 13:45 | PC.NURSE ---
DR HINSON AT BEDSIDE TO UPDATE PT ON POC
[2024-02-06 13:50] VITALS: BP 122/88; PULSE 100; RESP 18; TEMP 36.4; O2SAT 100
[2024-02-06 15:04] LABS: HIV (1&2) Antibody Rapid NONREACTIVE (NONREACTIVE)
[2024-02-07 06:40] LABS: HCV Ab Non Reactive (Non Reactive)
== END 2024-02-06 13:50 | disposition home or self-care (01) ==
PROVIDERS: Emergency Provider Emergency Medicine; PCP Nurse Practitioner Family
DX: J20.9 Acute bronchitis, unspecified (principal); R07.1 Chest pain on breathing; R06.02 Shortness of breath; R42 Dizziness and giddiness; R06.4 Hyperventilation
CPT/HCPCS: 71046; 80053; 82803; 83880; 84484; 84703; 85025; 85378; 85730; 86803; 87389; 93005; 96374; 96375; 99285; J0131; J1885

== ENCOUNTER 2024-02-12 20:03 | Emergency (ER) | payer MEDICAID, SELFPAY ==
[2024-02-12 20:12] VITALS: BP 124/76; PULSE 75; RESP 14; TEMP 36.6; O2SAT 93; BMI 31.7
--- NOTE | 2024-02-12 20:21 | ED_ITS ---
Discharge Plan Disposition Patient Disposition: Home, Self-Care Prescriptions Prescriptions: New lidocaine 5 % adhesive patch,medicated 1 patch topical DAILY PRN (Reason: pain) Qty: 30 0RF Rx Instructions: leave on most painful area for up to 12 hrs cyclobenzaprine 5 mg tablet 10 mg PO TID PRN (Reason: muscle spasm) Qty: 30 0RF No Action bupropion HCl 150 mg tablet extended release 24 hr PO Patient Comments: TAKE 1 TABLET BY MOUTH EVERY 24 HOURS omeprazole 20 mg capsule,delayed release(DR/EC) 20 mg PO DAILY Patient Comments: TAKE 1 CAPSULE BY MOUTH ONCE DAILY Vraylar 1.5 mg capsule 1.5 mg PO DAILY Patient Comments: TAKE 1 CAPSULE BY MOUTH ONCE DAILY norethindrone-e.estradiol-iron [Loestrin Fe 06/09 (28-Day)] 1 mg-20 mcg (21)/75 mg (7) tablet 1 tab PO DAILY Qty: 84 3RF methocarbamol 750 mg tablet 1,500 mg PO TID 5 Days Qty: 30 0RF prednisone 20 mg tablet 40 mg PO DAILY 5 Days Qty: 10 0RF Referrals Follow up/Referrals: Shania Mtz APRN [Primary Care Provider] - See instructions Activity Restrictions/Add. Instructions Additional Instructions/Restrictions: Please take Tylenol ibuprofen and use Flexeril and lidocaine patches as needed for pain. Please follow-up with your primary care provider. Please return to the emergency department if you develop any new or worsening symptoms or become concerned for your health. Clinical Impressions Clinical Impression: Back pain Instructions Patient Instructions: DI for Low Back Pain Print Language Print Language: Croatian Discharge ED Provider: Emory Short General Adult HPI <Lefty Yang MD - Last Filed: 02/12/24 22:57> General Chief complaint: Back Pain/Injury Stated complaint: back pain Time Seen by Provider: 02/12/24 20:04 Mode of Arrival: Family Vehicle Source of Information: Patient Limitations: No Limitations Description of Symptoms (Recalled from ER Triage Doc. by RN): 28 yo female presents with cc of mid-low back pain following bending over and 'feeling a pop' when she did. Stated she has had 'pressure' type pain ever since. Patient denies tingling/numbness in extremities, denies inconctinence. States no previous history of issues. History of Present Illness HPI narrative: Please note that above description of symptoms, in this electronic medical record under categorization of recalled from ER triage doctor by RN are reflective of an initial nursing assessment, however, is not reflective of my full history and physical exam that was personally taken and clarified. Consequentially, this preceding description of symptoms, which may include the patient's categorized chief complaint in the EMR, do not reflect my personal clinical impression, and the ultimate description of history of present illness and patient stated complaints should be deferred to this section of the note. Unless stated otherwise or congruent with this section of the note, additional signs, symptoms, or incongruence should be interpreted as inaccurate with my clinical impression. Related Data Home Medications ?Medication ?Instructions ?Recorded ?Confirmed bupropion HCl 150 mg 24 hr tablet, mg PO 10/10/23 10/10/23 extended release cariprazine 1.5 mg capsule 1.5 mg PO DAILY 10/10/23 10/10/23 (Vraylar) omeprazole 20 mg capsule,delayed 20 mg PO DAILY 10/10/23 10/10/23 release Previous Rx's ?Medication ?Instructions ?Recorded methocarbamol 750 mg tablet 1,500 mg (2 x 750 mg) PO TID 5 08/25/23 days #30 tabs norethindrone 1 mg-ethinyl 1 tab PO DAILY #84 tabs 10/10/23 estradiol 20 mcg (21)-iron 75 mg (7) tablet (Loestrin Fe 06/09 (28-Day)) prednisone 20 mg tablet 40 mg (2 x 20 mg) PO DAILY 5 days 02/06/24 #10 tabs cyclobenzaprine 5 mg tablet 10 mg (2 x 5 mg) PO TID PRN muscle 02/13/24 spasm #30 tabs lidocaine 5 % topical patch 1 patch topical DAILY PRN pain #30 02/13/24 ea Allergies Allergy/AdvReac Type Severity Reaction Status Date / Time tramadol Allergy Verified 02/06/24 12:08 [facility] <Lefty Yang MD - Last Filed: 02/12/24 22:57> [facility] Disclaimer: The information contained in this section may have been updated after the patient was seen, as this information can be updated by other users. Medical History (Updated 02/12/24 @ 23:27 by Emory Short MD) Galactorrhea History of anemia Hypothyroid ADHD Sciatica Depression Anxiety Surgical History (Updated 10/10/23 @ 14:10 by KAPIL Kahn) History of surgery on lower extremity History of cholecystectomy History of Family History (Updated 10/10/23 @ 14:13 by KAPIL Kahn) Grandfather Cancer Kidney disease Family/Other Cancer Mother Hypertension Father Hypertension Stroke Social History (Updated 10/10/23 @ 14:14 by KAPIL Kahn) Smoking Status: Unknown if ever smoked alcohol intake: current alcohol intake frequency: holidays/special occasions only current occupational status: employed Travel in the last 8 weeks: None <Lefty Yang MD - Last Filed: 02/12/24 22:57> ROS Obtained: Yes All systems reviewed & no additional complaints except as documented Physical Exam <Lefty Yang MD - Last Filed: 02/12/24 22:57> General General appearance: alert and anxious Head Head exam: atraumatic and normocephalic Eye Eye exam: Present normal appearance, PERRL and EOMI Neck Neck exam: Present normal inspection, full ROM and trachea midline Respiratory Respiratory exam: Absent respiratory distress, wheezes, stridor, accessory muscle use or prolonged expiratory phase Cardiovascular Cardiovascular exam: Present other (Pulses equal symmetric in upper and lower extremities) Abdominal Exam Abdominal exam: Present soft; Absent distention, tenderness or pulsatile mass Extremities Exam Extremities exam: Present normal inspection and full ROM; Absent edema Back Exam Back exam: Present tenderness (Midline lumbar spinal tenderness. No outward signs of injury, deformity, step-off, etc.); Absent straight leg raise (R) or straight leg raise (L) Neurological Exam Neurological exam: Present alert, oriented X3, CN II-XII intact and normal gait (Deferred until imaging and meds); Absent motor sensory deficit Skin Skin exam: Present warm and dry; Absent diaphoresis or erythema Medical Decision Making <Lefty Yang MD - Last Filed: 02/12/24 22:57> Medical Records Medical records reviewed: Yes I reviewed the patient's medical records. Screening: Per USPSTF and CDC recommendations, given the prevalence of disease in our [facility], it is our hospital?s policy to screen for HIV and viral Hepatitis for all patients aged 18 and over and those with ongoing risk factors. [place] Inquiry Pt receiving controlled substance: No [place] was queried for this patient: No Vital Signs: 02/12/24 20:12 02/12/24 21:30 02/12/24 22:00 Temperature 97.8 F Temperature Source Oral Pulse Rate 110 H 105 H Pulse Rate [Right Brachial] 75 Respiratory Rate 14 Blood Pressure 105/70 L 114/68 Blood Pressure [Right Arm] 124/76 Blood Pressure Mean 84 91 Blood Pressure Mean [Right Arm] 92 Blood Pressure Source [Right Arm] Automatic Cuff Blood Pressure Position [Right Arm] Sitting 02 Sat by Pulse Oximetry 93 L 100 100 Oxygen Delivery Method Room Air Room Air Room Air 02/12/24 22:30 Temperature Temperature Source Pulse Rate 105 H Pulse Rate [Right Brachial] Respiratory Rate Blood Pressure 96/60 L Blood Pressure [Right Arm] Blood Pressure Mean Blood Pressure Mean [Right Arm] Blood Pressure Source [Right Arm] Blood Pressure Position [Right Arm] 02 Sat by Pulse Oximetry 100 Oxygen Delivery Method Lab Data Lab Results 02/12/24 21:10: HCG, Quant < 2 Orders (Tests/Meds): ED MEDICATIONS Discontinued Medications Generic Name Dose Route Start Last Admin Trade Name Guillermoq PRN Reason Stop Dose Admin Acetaminophen 1,000 mg 02/12/24 20:15 02/12/24 20:42 Acetaminophen 500mg Tab PO 02/12/24 20:16 1,000 mg ONCE ONE Administration Cyclobenzaprine HCl 10 mg 02/12/24 23:57 02/12/24 23:59 Cyclobenzaprine 10mg Tablet PO 02/12/24 23:58 10 mg ONCE ONE Administration Ketorolac Tromethamine 15 mg 02/12/24 20:15 02/12/24 20:42 Ketorolac 30mg/Ml Vial IM 02/12/24 20:16 15 mg ONCE ONE Administration Lidocaine 1 each 02/12/24 20:15 02/12/24 20:41 Lidocaine 5% Transdermal Patch TP 02/12/24 20:16 1 each ONCE ONE Administration Morphine Sulfate 4 mg 02/12/24 21:50 02/12/24 21:56 Morphine 4mg/Ml Syringe IV 02/12/24 21:51 4 mg ONCE ONE Administration Ondansetron HCl 4 mg 02/12/24 21:50 02/12/24 22:00 Ondansetron 4mg/2ml Vial IV 02/12/24 21:51 4 mg ONCE ONE Administration Prednisone 40 mg 02/12/24 20:15 02/12/24 20:41 Prednisone 20mg Tab PO 02/12/24 20:16 40 mg ONCE ONE Administration ORDERS Category Date Time Status CT lumbar spine wo con Stat Cat Scan 02/12/24 20:22 Completed HCG,Quantitative Stat Lab 02/12/24 21:10 Completed Urine , HCG Qual. Stat Lab 02/12/24 20:22 Ordered Medical Decision Narrative: 28-year-old female history of chronic back pain presenting with acute on chronic back pain. Patient states that she was at work, bent over and felt a pop. Midline lumbar spinal pain. Happened about an hour prior to this visit. Was not lifting anything at the time. Has been ambulatory since without issue, states that when she walks it makes it worse. It is midline, does not radiate to the right or left, does not cause weakness, numbness, tingling in her legs. Has been able to void spontaneously without issue, no loss of continence. Moderate to severe in intensity, has not taken anything for the pain. History was obtained via conversation with patient. On arrival, patient hemodynamically stable, alert, oriented x4, appropriate, GCS 15, moving all extremities spontaneously, pupils equal and reactive to light. Full physical exam performed and significant for anxious appearing female who is in mild distress secondary to pain. No visible or palpable abnormalities of back. Neurovascularly intact in lower extremities. Ambulation trial was deferred at this time until pain meds, imaging done. Differential includes sprain, disc herniation, less likely to be cauda equina or conus medullaris, among others. Patient placed on continuous cardiac monitoring and continuous pulse ox with initial blood pressure 124/76, heart rate 75, saturation 93% on room air. Patient given Toradol IM, prednisone, acetaminophen p.o., lidocaine patch for symptoms. Independent interpretation of CT imaging demonstrates no acute abnormality. On reevaluation, patient still in pain, but transferred to [facility] without issue. Stating that she has tingling in her legs, but strength, reflexes intact. Prior to CT read, care handed off to oncoming physician. Cop disclaimer Much of this encounter note is an electronic javascript application developer spoken language to printed text. Electronic javascript application developer of the spoken language may permit errors. Although I have reviewed the note, some errors may still exist. <Emory Short MD - Last Filed: 02/13/24 00:42> Vital Signs: 02/12/24 20:12 02/12/24 21:30 02/12/24 22:00 Temperature 97.8 F Temperature Source Oral Pulse Rate 110 H 105 H Pulse Rate [Right Brachial] 75 Respiratory Rate 14 Blood Pressure 105/70 L 114/68 Blood Pressure [Right Arm] 124/76 Blood Pressure Mean 84 91 Blood Pressure Mean [Right Arm] 92 Blood Pressure Source [Right Arm] Automatic Cuff Blood Pressure Position [Right Arm] Sitting 02 Sat by Pulse Oximetry 93 L 100 100 Oxygen Delivery Method Room Air Room Air Room Air 02/12/24 22:30 Temperature Temperature Source Pulse Rate 105 H Pulse Rate [Right Brachial] Respiratory Rate Blood Pressure 96/60 L Blood Pressure [Right Arm] Blood Pressure Mean Blood Pressure Mean [Right Arm] Blood Pressure Source [Right Arm] Blood Pressure Position [Right Arm] 02 Sat by Pulse Oximetry 100 Oxygen Delivery Method Lab Data Lab Results 02/12/24 21:10: HCG, Quant < 2 Orders (Tests/Meds): ED MEDICATIONS Discontinued Medications Generic Name Dose Route Start Last Admin Trade Name Davina PRN Reason Stop Dose Admin Acetaminophen 1,000 mg 02/12/24 20:15 02/12/24 20:42 Acetaminophen 500mg Tab PO 02/12/24 20:16 1,000 mg ONCE ONE Administration Cyclobenzaprine HCl 10 mg 02/12/24 23:57 02/12/24 23:59 Cyclobenzaprine 10mg Tablet PO 02/12/24 23:58 10 mg ONCE ONE Administration Ketorolac Tromethamine 15 mg 02/12/24 20:15 02/12/24 20:42 Ketorolac 30mg/Ml Vial IM 02/12/24 20:16 15 mg ONCE ONE Administration Lidocaine 1 each 02/12/24 20:15 02/12/24 20:41 Lidocaine 5% Transdermal Patch TP 02/12/24 20:16 1 each ONCE ONE Administration Morphine Sulfate 4 mg 02/12/24 21:50 02/12/24 21:56 Morphine 4mg/Ml Syringe IV 02/12/24 21:51 4 mg ONCE ONE Administration Ondansetron HCl 4 mg 02/12/24 21:50 02/12/24 22:00 Ondansetron 4mg/2ml Vial IV 02/12/24 21:51 4 mg ONCE ONE Administration Prednisone 40 mg 02/12/24 20:15 02/12/24 20:41 Prednisone 20mg Tab PO 02/12/24 20:16 40 mg ONCE ONE Administration ORDERS Category Date Time Status CT lumbar spine wo con Stat Cat Scan 02/12/24 20:22 Completed HCG,Quantitative Stat Lab 02/12/24 21:10 Completed Urine , HCG Qual. Stat Lab 02/12/24 20:22 Ordered Medical Decision Narrative: 28-year-old female history of chronic back pain presenting with acute on chronic back pain. Patient states that she was at work, bent over and felt a pop. Midline lumbar spinal pain. Happened about an hour prior to this visit. Was not lifting anything at the time. Has been ambulatory since without issue, states that when she walks it makes it worse. It is midline, does not radiate to the right or left, does not cause weakness, numbness, tingling in her legs. Has been able to void spontaneously without issue, no loss of continence. Moderate to severe in intensity, has not taken anything for the pain. History was obtained via conversation with patient. On arrival, patient hemodynamically stable, alert, oriented x4, appropriate, GCS 15, moving all extremities spontaneously, pupils equal and reactive to light. Full physical exam performed and significant for anxious appearing female who is in mild distress secondary to pain. No visible or palpable abnormalities of back. Neurovascularly intact in lower extremities. Ambulation trial was deferred at this time until pain meds, imaging done. Differential includes sprain, disc herniation, less likely to be cauda equina or conus medullaris, among others. Patient placed on continuous cardiac monitoring and continuous pulse ox with initial blood pressure 124/76, heart rate 75, saturation 93% on room air. Patient given Toradol IM, prednisone, acetaminophen p.o., lidocaine patch for symptoms. Independent interpretation of CT imaging demonstrates no acute abnormality. On reevaluation, patient still in pain, but [facility]. Stating that she has tingling in her legs, but strength, reflexes intact. Prior to CT read, care handed off to oncoming physician. Cop disclaimer Much of this encounter note is an electronic javascript application developer spoken language to printed text. Electronic javascript application developer of the spoken language may permit errors. Although I have reviewed the note, some errors may still exist. Han TALBERT: I assumed care of the patient at the time of handoff from the prior provider. On reassessment when I walked in the room patient was smiling and laughing. She reports she is still having some pain but it is better than before. Patient was able to ambulate, was able to use the bathroom and had a postvoid residual of [address] imaging returned without fracture dislocation, large disc bulge or other pathology. These findings were communicated with patient. She is given a dose of Flexeril and discharged with prescription for Flexeril. Return precautions given. Critical Care <Lefty Yang MD - Last Filed: 02/12/24 22:57> Critical Care Time Critical Care Time: No
--- NOTE | 2024-02-12 20:22 | CT_ITS ---
PROCEDURE INFORMATION: Exam: CT Lumbar Spine Without Contrast Exam date and time: 02/12/2024 10:10 PM Age: 28 years old Clinical indication: Low back pain; Additional info: Midline pain and pop after bending over TECHNIQUE: Imaging protocol: Computed tomography of the lumbar spine without contrast. Radiation optimization: All CT scans at this facility use at least one of these dose optimization techniques: automated exposure control; mA and/or kV adjustment per patient size (includes targeted exams where dose is matched to clinical indication); or iterative reconstruction. COMPARISON: CT ABDOMEN PELVIS W CON 07/11/2022 7:22 PM FINDINGS: Bones/joints: Five lumbar type vertebral bodies. Vertebral body heights and lateral alignment maintained. No acute fracture or posttraumatic subluxation. Grossly the central spinal canal is adequate in the lumbar region. Soft tissues: Unremarkable. IMPRESSION: No acute abnormality in the lumbar spine identified.
[2024-02-12] MEDS: predniSONE 20MG TAB 40 MG PO (20:41)
[2024-02-12] MEDS: LIDOCAINE 5% TRANSDERMAL PATCH 1 EACH TP (20:41)
[2024-02-12] MEDS: KETOROLAC 30MG/ML VIAL 15 MG IM (20:42)
[2024-02-12] MEDS: ACETAMINOPHEN 500MG TAB 1000 MG PO (20:42)
--- NOTE | 2024-02-12 20:51 | PC.NURSE ---
Administered all medication per the MAR
[2024-02-12 21:30] VITALS: BP 105/70; PULSE 110; O2SAT 100
--- NOTE | 2024-02-12 21:44 | PC.NURSE ---
lab contacted re: HCG results, will be approx. 15 min
[2024-02-12 21:55] LABS: HCG,Quantitative < 2 mIU/ml (0-5.42)
[2024-02-12] MEDS: MORPHINE 4MG/ML SYRINGE 4 MG IV (21:56)
[2024-02-12 22:00] VITALS: BP 114/68; PULSE 105; O2SAT 100
[2024-02-12] MEDS: ONDANSETRON 4MG/2ML VIAL 4 MG IV (22:00)
--- NOTE | 2024-02-12 22:01 | PC.NURSE ---
patient going to radiology after being medicated
--- NOTE | 2024-02-12 22:04 | PC.NURSE ---
Administered 4mg of Morphine and 4mg Of Zofran as per the MAR
[2024-02-12 22:30] VITALS: BP 96/60; PULSE 105; O2SAT 100
[2024-02-12] MEDS: CYCLOBENZAPRINE 10MG TABLET 10 MG PO (23:59)
--- NOTE | 2024-02-13 00:40 | PC.NURSE ---
Assisted patient to restroom via wheelchair. Patient urinated 240ml dark yellow urine. Notified provider. Post void bladder scan performed. Volume 57ml. Notified Dr. Short.
[2024-02-13 00:51] VITALS: BP 104/69; PULSE 98; RESP 17; TEMP 36.7; O2SAT 98
== END 2024-02-13 01:03 | disposition home or self-care (01) ==
PROVIDERS: Emergency Medicine; Emergency Provider Emergency Medicine; PCP Nurse Practitioner Family
DX: M54.50 Low back pain, unspecified (principal)
CPT/HCPCS: 72131; 84702; 96372; 96374; 96375; 99284; J1885; J2270; J2405

== ENCOUNTER 2024-04-06 02:59 | Emergency (ER) | payer MEDICAID, SELFPAY ==
[2024-04-06 03:07] VITALS: BP 139/90; PULSE 97; RESP 18; TEMP 36.5; O2SAT 100; BMI 32.2
--- NOTE | 2024-04-06 03:11 | PC.NURSE ---
Dr Short at bedside
[2024-04-06 03:15] VITALS: BP 139/90; PULSE 104; O2SAT 100
--- NOTE | 2024-04-06 03:23 | HMH.EDGENADL ---
Discharge Plan Prescriptions Prescriptions: No Action bupropion HCl 150 mg tablet extended release 24 hr PO Patient Comments: TAKE 1 TABLET BY MOUTH EVERY 24 HOURS omeprazole 20 mg capsule,delayed release(DR/EC) 20 mg PO DAILY Patient Comments: TAKE 1 CAPSULE BY MOUTH ONCE DAILY Vraylar 1.5 mg capsule 1.5 mg PO DAILY Patient Comments: TAKE 1 CAPSULE BY MOUTH ONCE DAILY norethindrone-e.estradiol-iron [Loestrin Fe 06/09 (28-Day)] 1 mg-20 mcg (21)/75 mg (7) tablet 1 tab PO DAILY Qty: 84 3RF lidocaine 5 % adhesive patch,medicated 1 patch topical DAILY PRN (Reason: pain) Qty: 30 0RF Rx Instructions: leave on most painful area for up to 12 hrs cyclobenzaprine 5 mg tablet 10 mg PO TID PRN (Reason: muscle spasm) Qty: 30 0RF methocarbamol 750 mg tablet 1,500 mg PO TID 5 Days Qty: 30 0RF prednisone 20 mg tablet 40 mg PO DAILY 5 Days Qty: 10 0RF Referrals Follow up/Referrals: Shania Mtz APRN [Primary Care Provider] - See instructions Activity Restrictions/Add. Instructions Additional Instructions/Restrictions: Please take Tylenol and ibuprofen as needed for pain. Please follow-up with your primary care provider. Please return to the emergency department if you develop any new or worsening symptoms or become concerned for your health. Clinical Impressions Clinical Impression: Pharyngitis Qualifiers: Pharyngitis/tonsillitis etiology: unspecified etiology Qualified Code(s): J02.9 - Acute pharyngitis, unspecified Print Language Print Language: Tajik Discharge ED Provider: Emory Short General Adult HPI General Chief complaint: PAIN Stated complaint: pain with swallowing Time Seen by Provider: 04/06/24 03:00 Mode of Arrival: Ambulatory Source of Information: Patient Limitations: No Limitations History of Present Illness HPI narrative: 28-year-old female presents with sore throat and difficulty swallowing. She reports that it started within the last couple of hours. She reports that earlier today she participated in consensual choking during sexual intercourse. She reports it was not particularly hard or different than normal. She did not have any pain at the time of the choking, no loss of consciousness, she has no bruising on exam. She reports that she thinks she coughed up a couple flecks of blood. Related Data Home Medications ?Medication ?Instructions ?Recorded ?Confirmed bupropion HCl 150 mg 24 hr tablet, mg PO 10/10/23 10/10/23 extended release cariprazine 1.5 mg capsule 1.5 mg PO DAILY 10/10/23 10/10/23 (Vraylar) omeprazole 20 mg capsule,delayed 20 mg PO DAILY 10/10/23 10/10/23 release Previous Rx's ?Medication ?Instructions ?Recorded methocarbamol 750 mg tablet 1,500 mg (2 x 750 mg) PO TID 5 08/25/23 days #30 tabs norethindrone 1 mg-ethinyl 1 tab PO DAILY #84 tabs 10/10/23 estradiol 20 mcg (21)-iron 75 mg (7) tablet (Loestrin Fe 06/09 (28-Day)) prednisone 20 mg tablet 40 mg (2 x 20 mg) PO DAILY 5 days 02/06/24 #10 tabs cyclobenzaprine 5 mg tablet 10 mg (2 x 5 mg) PO TID PRN muscle 02/13/24 spasm #30 tabs lidocaine 5 % topical patch 1 patch topical DAILY PRN pain #30 02/13/24 ea Allergies Allergy/AdvReac Type Severity Reaction Status Date / Time tramadol Allergy Verified 02/06/24 12:08 [facility] Disclaimer: The information contained in this section may have been updated after the patient was seen, as this information can be updated by other users. Medical History (Updated 04/06/24 @ 03:57 by Emory Short MD) Galactorrhea History of anemia Hypothyroid ADHD Sciatica Depression Anxiety Surgical History (Updated 10/10/23 @ 14:10 by KAPIL Kahn) History of surgery on lower extremity History of cholecystectomy History of Family History (Updated 10/10/23 @ 14:13 by KAPIL Kahn) Grandfather Cancer Kidney disease Family/Other Cancer Mother Hypertension Father Hypertension Stroke Social History (Updated 10/10/23 @ 14:14 by KAPIL Kahn) Smoking Status: Never smoker alcohol intake: current alcohol intake frequency: holidays/special occasions only current occupational status: employed Travel in the last 8 weeks: None Other Medical History Have you received the Pneumonia Vaccine: No ROS Obtained: Yes All systems reviewed & no additional complaints except as documented Physical Exam General General appearance: alert and in no apparent distress Head Head exam: atraumatic and normocephalic Eye Eye exam: Present normal appearance, PERRL and EOMI ENT ENT exam: Present other (Patient has erythema and swelling of the tonsillar pillars and the uvula, the tonsils themselves are mildly erythematous but normal in size without exudate.) Neck Neck exam: Present full ROM and other (No bruising or erythema on the neck. Patient has mild bilateral anterior cervical lymphadenopathy.) Chest Chest inspection: Present normal inspection and symmetric chest wall rise; Absent tenderness Respiratory Respiratory exam: Present normal lung sounds bilaterally; Absent respiratory distress Cardiovascular Cardiovascular exam: Present regular rate and normal rhythm Abdominal Exam Abdominal exam: Present soft; Absent distention, tenderness or guarding Extremities Exam Extremities exam: Present normal inspection; Absent edema or joint swelling Back Exam Back exam: Present normal inspection; Absent tenderness Neurological Exam Neurological exam: Present alert and oriented X3; Absent motor sensory deficit Psychiatric Psychiatric exam: Present normal affect and normal mood Skin Skin exam: Present warm, dry and normal color Lymphatic Lymphatic Findings: no adenopathy Medical Decision Making Medical Records Medical records reviewed: Yes I reviewed the patient's medical records. Screening: Per USPSTF and CDC recommendations, given the prevalence of disease in our region, it is our hospital?s policy to screen for HIV and viral Hepatitis for all patients aged 18 and over and those with ongoing risk factors. Jordan Inquiry Pt receiving controlled substance: No Jordan was queried for this patient: No Vital Signs: 04/06/24 03:07 04/06/24 03:15 04/06/24 03:30 Temperature 97.7 F Temperature Source Oral Pulse Rate 104 H 96 H Pulse Rate [Left Radial] 97 H Respiratory Rate 18 Blood Pressure 139/90 113/80 Blood Pressure [Right Arm] 139/90 Blood Pressure Mean [Right Arm] 106 Blood Pressure Source [Right Arm] Automatic Cuff Blood Pressure Position [Right Arm] Sitting 02 Sat by Pulse Oximetry 100 100 98 Oxygen Delivery Method Room Air 04/06/24 03:54 Temperature 97.6 F Temperature Source Oral Pulse Rate 90 Pulse Rate [Left Radial] Respiratory Rate 17 Blood Pressure 113/80 Blood Pressure [Right Arm] Blood Pressure Mean [Right Arm] Blood Pressure Source [Right Arm] Blood Pressure Position [Right Arm] 02 Sat by Pulse Oximetry Oxygen Delivery Method Room Air Lab Data Lab results reviewed: Yes I reviewed the patient's lab results. Lab Results 04/06/24 03:33: Group A Strep Rapid Negative Orders (Tests/Meds): ED MEDICATIONS Discontinued Medications Generic Name Dose Route Start Last Admin Trade Name Davina PRN Reason Stop Dose Admin Dexamethasone 10 mg 04/06/24 03:54 04/06/24 03:58 Dexamethasone 1mg/1ml Intensol 10ml Udc (Er) PO 04/06/24 03:55 10 mg ONCE ONE Administration Lidocaine HCl 15 ml 04/06/24 03:23 04/06/24 03:36 Lidocaine 2% Viscous Brianna 15ml Udc PO 04/06/24 03:24 15 ml ONCE ONE Administration ORDERS Category Date Time Status Strep Scrn Group A (Rapid) Stat Lab 04/06/24 03:33 Completed Strep Screen Confirmation Stat Micro 04/06/24 03:33 Received Medical Decision Narrative: 28-year-old female without significant past medical history presents for throat pain and difficulty swallowing.. History was obtained via interactive discussion with patient. On arrival, patient is [afebrile, hemodynamically stable, satting appropriately, alert, oriented x4, GCS 15], moving all extremities spontaneously. Full physical exam performed and significant for erythema and mild swelling of the uvula and tonsillar pillars, mild anterior cervical lymphadenopathy, no bruising or erythema of the neck. Patient is able to swallow at bedside on my exam. No difficulty breathing, no submandibular swelling, no swelling of the tongue or lips. Full range of motion of the neck intact without pain. Differential includes but is not limited to viral/bacterial pharyngitis, peritonsillar abscess, retropharyngeal abscess, epiglottitis, allergic reaction, angioedema, trauma to the neck. Patient was given 15 mL of viscous lidocaine, 10 mg of p.o. Decadron for symptomatic management and correction of underlying abnormalities. Workup initiated including strep swab, gonorrhea chlamydia swab of the throat. On re-evaluation, patient [remains afebrile, HD stable.] She reports symptomatic improvement after the viscous lidocaine. Laboratory workup independently interpreted by me and significant for negative strep swab, GC chlamydia pending.. Radiographs/CT of the neck was considered, but deemed unnecessary due to infectious etiology on exam without evidence of PROFESSIONAL DEVELOPMENT DIRECTOR, RPA or epiglottitis. Given patient history, exam and workup, patient's presentation most likely represents viral pharyngitis with predominantly uvular involvement. Interactive discussion was had with patient regarding presentation. Given negative strep, no indication for antibiotic therapy at this time. Patient was given strict return precautions for any worsening of dysphagia, development of any respiratory symptoms, development of systemic symptoms. Patient discharged in stable condition. Procedures Risk/Benefits of Procedure(s) Were Explained: Yes Critical Care Critical Care Time Critical Care Time: No
[2024-04-06 03:30] VITALS: BP 113/80; PULSE 96; O2SAT 98
[2024-04-06] MEDS: LIDOCAINE 2% VISCOUS SOL 15ML UDC 15 ML PO (03:36)
[2024-04-06 03:46] LABS: Strep Scrn Group A (Rapid) Negative (Negative)
[2024-04-06 03:54] VITALS: BP 113/80; PULSE 90; RESP 17; TEMP 36.4; O2SAT 99
[2024-04-06] MEDS: DEXAMETHASONE 1MG/1ML INTENSOL 10ML UDC (ER) 10 MG PO (03:58)
[2024-04-08 22:07] LABS: Neisseria gonorrhoeae, NAA Negative (Negative)
== END 2024-04-06 04:03 | disposition home or self-care (01) ==
PROVIDERS: Emergency Provider Emergency Medicine; PCP Nurse Practitioner Family
DX: J02.9 Acute pharyngitis, unspecified (principal); R13.10 Dysphagia, unspecified
CPT/HCPCS: 87430; 87491; 87591; 99283

== ENCOUNTER 2024-08-20 20:17 | Emergency (ER) | payer MEDICAID, SELFPAY ==
[2024-08-20 20:30] VITALS: BP 113/82; PULSE 70; RESP 15; TEMP 36.2; O2SAT 100; BMI 31.8
--- NOTE | 2024-08-20 20:43 | CT_ITS ---
PROCEDURE INFORMATION: Exam: CT Abdomen And Pelvis With Contrast Exam date and time: 08/20/2024 9:47 PM Age: 28 years old Clinical indication: Abdominal pain; Additional info: Rlq pain TECHNIQUE: Imaging protocol: Computed tomography of the abdomen and pelvis with contrast. Radiation optimization: All CT scans at this facility use at least one of these dose optimization techniques: automated exposure control; mA and/or kV adjustment per patient size (includes targeted exams where dose is matched to clinical indication); or iterative reconstruction. Contrast material: ISOVUE; Contrast volume: 75 ml; Contrast route: IV; COMPARISON: CT ABDOMEN PELVIS W CON 07/11/2022 7:22 PM FINDINGS: Lungs: Bilateral dependent pulmonary atelectasis is demonstrated within the lungs. Liver: Unremarkable. No mass. Gallbladder and biliary ducts: The gallbladder has been surgically removed. Surgical clips identified in the gallbladder fossa. Post cholecystectomy common biliary duct ectasia. If clinically indicated, consider correlation with liver function tests. Pancreas: Unremarkable. Spleen: Unremarkable. No splenomegaly. Adrenal glands: Normal. No mass. Kidneys and ureters: Unremarkable. No hydronephrosis or calculi. Stomach and bowel: Possible mild increased volume of colonic fecal material identified throughout the colon. The bowel appears otherwise unremarkable. Appendix: The visualized appendix appears unremarkable. Intraperitoneal space: Small volume of intraperitoneal fluid identified in the bilateral pelvis. Vasculature: Unremarkable. No abdominal aortic aneurysm. Lymph nodes: No enlarged lymph nodes. Urinary bladder: Urinary bladder appears small in size, limiting further assessment. Reproductive: Left ovarian physiologic appearing corpus luteum cyst is noted. Measurement: 19 mm on axial image 102. The visualized aspects of the reproductive organs appear otherwise unremarkable. The adnexa appears otherwise unremarkable. Bones/joints: No acute bony abnormality. No significant degenerative changes. Soft tissues: Unremarkable. Other findings: Limited study with motion artifact. IMPRESSION: 1. Physiologic appearing left ovarian luteum cyst. 2. Small volume free fluid within the pelvis. 3. Possible mild constipation. 4. Normal appendix.
[2024-08-20 20:45] LABS: Microscopic, Urine URINE MICROSCOPIC (MICROSCOPIC)
[2024-08-20 20:47] LABS: Appearance,Urine CLEAR (Clear); Bilirubin,Urine Negative (Negative); Blood, Urine Negative (Negative); Color,Urine YELLOW (Yellow); Glucose,Urine (UA) Negative (Negative); Ketones,Urine Negative (Negative); Leukocyte Esterase,Urine Negative (Negative); Nitrate,Urine Negative (Negative); Protein,Urine Negative (Negative)
[2024-08-20] MEDS: MORPHINE 4MG/ML SYRINGE 4 MG IV ×2 (20:54→23:15)
[2024-08-20 20:56] LABS: Basophils % 0.4 % (0.1-2.0); Eosinophils # 0.1 K/mm3 (0.0-0.4); Eosinophils % 1.9 % (0.1-12.0); Hemoglobin 11.4 g/dL (12.2-16.2); Lymphocytes # 2.3 K/mm3 (0.7-4.5); Lymphocytes % 32.5 % (10-50); Mean Corpuscular HGB Conc 32.6 g/dL (31.8-35.4); Mean Corpuscular Hemoglobin 25.9 pg (27.0-31.2); Mean Corpuscular Volume 79.5 fl (81-99); Mean Platelet Volume 11.4 fl (7.4-10.4); Monocytes # 0.5 K/mm3 (0.1-1.0); Monocytes % 7.8 % (1.7-9.3); Neutrophils % 57.3 % (37.0-80.0); Platelet Count 223 K/mm3 (142-424); Red Cell Distribution Width 14.6 % (11.5-17.5); White Blood Count 6.9 K/mm3 (4.8-10.8)
[2024-08-20 21:09] LABS: Chloride 104 mmol/L (98-107)
[2024-08-20 21:10] LABS: Albumin Level 4.4 g/dl (3.5-5.0); Potassium 3.6 mmoL/L (3.5-5.1); Sodium 140 mmol/L (136-145)
[2024-08-20 21:13] LABS: Alanine Aminotransferase 20 U/L (12-78); Albumin/Globulin Ratio 1.5 (1.1-1.8); Alkaline Phosphatase 45 U/L (38-126); Anion Gap 10.6 mEq/L (5-15); Aspartate Amino Transferase 40 U/L (14-36); Bilirubin,Total 0.5 mg/dl (0.2-1.3); Blood Urea Nitrogen 13 mg/dl (7-17); Carbon Dioxide 29 mmol/L (22.0-30.0); Creatinine Clearance Estimated 130 mL/min (50-200); Estimated Glomerular Filt Rate 76 ml/min (>60); GFR (African American) 92 ML/MIN (>60); Glucose 93 mg/dl (74-100); Lipase 126 U/L (23-300); Total Protein,Serum 7.4 g/dl (6.3-8.2)
[2024-08-20 21:14] LABS: Lactic Acid 0.8 mmol/L (0.7-2.1)
--- NOTE | 2024-08-20 21:15 | ED_ITS ---
Discharge Plan Disposition Patient Disposition: Home, Self-Care Prescriptions Prescriptions: New methocarbamol 500 mg tablet 1,500 mg PO Q6H PRN (Reason: pain) Qty: 30 0RF No Action bupropion HCl 150 mg tablet extended release 24 hr PO Patient Comments: TAKE 1 TABLET BY MOUTH EVERY 24 HOURS omeprazole 20 mg capsule,delayed release(DR/EC) 20 mg PO DAILY Patient Comments: TAKE 1 CAPSULE BY MOUTH ONCE DAILY Vraylar 1.5 mg capsule 1.5 mg PO DAILY Patient Comments: TAKE 1 CAPSULE BY MOUTH ONCE DAILY norethindrone-e.estradiol-iron [Loestrin Fe 06/09 (28-Day)] 1 mg-20 mcg (21)/75 mg (7) tablet 1 tab PO DAILY Qty: 84 3RF lidocaine 5 % adhesive patch,medicated 1 patch topical DAILY PRN (Reason: pain) Qty: 30 0RF Rx Instructions: leave on most painful area for up to 12 hrs cyclobenzaprine 5 mg tablet 10 mg PO TID PRN (Reason: muscle spasm) Qty: 30 0RF methocarbamol 750 mg tablet 1,500 mg PO TID 5 Days Qty: 30 0RF prednisone 20 mg tablet 40 mg PO DAILY 5 Days Qty: 10 0RF Referrals Follow up/Referrals: Provider,Referral, MD [Primary Care Provider] - See instructions Activity Restrictions/Add. Instructions Additional Instructions/Restrictions: Please follow-up with your primary care provider. Please return to the emergency department if you develop any new or worsening symptoms or become concerned for your health. Clinical Impressions Clinical Impression: Abdominal pain, acute, right lower quadrant Stand Alone Forms Stand Alone Forms: Work/School Release Instructions Patient Instructions: DI for Acute Abdominal Pain Print Language Print Language: Martiniquais Discharge ED Provider: Emory Short General Adult HPI <Verito Crowder APRN - Last Filed: 08/20/24 21:56> General Chief complaint: Abdominal Pain Stated complaint: abdomin pain,nausea Time Seen by Provider: 08/20/24 20:39 Mode of Arrival: Ambulatory Source of Information: Patient Description of Symptoms (Recalled from ER Triage Doc. by RN): patient states she has had intermittent sharp pains in RLQ since this am. nausea vomitted 3 times. still has appendiz, no gallbladder History of Present Illness HPI narrative: patient is a 28-year-old female no significant PMHx who presents to the ED with complaints of right lower quadrant abdominal pain that started this morning on her way to work. Patient states over the day her abdominal pain has progressively worsened. Related Data Home Medications ?Medication ?Instructions ?Recorded ?Confirmed bupropion HCl 150 mg 24 hr tablet, mg PO 10/10/23 10/10/23 extended release cariprazine 1.5 mg capsule 1.5 mg PO DAILY 10/10/23 10/10/23 (Vraylar) omeprazole 20 mg capsule,delayed 20 mg PO DAILY 10/10/23 10/10/23 release Previous Rx's ?Medication ?Instructions ?Recorded methocarbamol 750 mg tablet 1,500 mg (2 x 750 mg) PO TID 5 08/25/23 days #30 tabs norethindrone 1 mg-ethinyl 1 tab PO DAILY #84 tabs 10/10/23 estradiol 20 mcg (21)-iron 75 mg (7) tablet (Loestrin Fe 06/09 (28-Day)) prednisone 20 mg tablet 40 mg (2 x 20 mg) PO DAILY 5 days 02/06/24 #10 tabs cyclobenzaprine 5 mg tablet 10 mg (2 x 5 mg) PO TID PRN muscle 02/13/24 spasm #30 tabs lidocaine 5 % topical patch 1 patch topical DAILY PRN pain #30 02/13/24 ea methocarbamol 500 mg tablet 1,500 mg (3 x 500 mg) PO Q6H PRN 08/21/24 pain #30 tabs Allergies Allergy/AdvReac Type Severity Reaction Status Date / Time tramadol Allergy Verified 02/06/24 12:08 [facility] <Verito Crowder APRN - Last Filed: 08/20/24 21:56> [facility] Disclaimer: The information contained in this section may have been updated after the patient was seen, as this information can be updated by other users. Medical History (Updated 08/21/24 @ 00:34 by Emory Short MD) Galactorrhea History of anemia Hypothyroid ADHD Sciatica Depression Anxiety Surgical History (Updated 10/10/23 @ 14:10 by KAPIL Kahn) History of surgery on lower extremity History of cholecystectomy History of Family History (Updated 10/10/23 @ 14:13 by KAPIL Kahn) Grandfather Cancer Kidney disease Family/Other Cancer Mother Hypertension Father Hypertension Stroke Social History (Updated 10/10/23 @ 14:14 by KAPIL Kahn) Smoking Status: Never smoker alcohol intake: current alcohol intake frequency: holidays/special occasions only current occupational status: employed Travel in the last 8 weeks: None Have you lived/traveled outside [place] in past 30 days?: No Contact w/someone who lives/traveled outside US past 30 days?: No Exposure to someone with infectious disease in past 14 days?: No Do you have a fever (greater than 100.4 F or 38 C)?: No Have you tested positive for COVID-19: No Exposed to someone with COVID-19 in past 14 days?: No Do you have a sore throat?: No Do you have a cough?: No Do you have any weakness?: No Do you have any diarrhea?: No Are you experiencing any unusual bleeding?: No Do you have any muscle aches/pain?: No Do you have any abdominal pain?: No Are you experiencing loss of taste or smell?: No Other Medical History Have you received the Pneumonia Vaccine: No <Verito Crowder APRN - Last Filed: 08/20/24 21:56> ROS Obtained: Yes Systems reviewed as appropriate & no additional complaints except as documented Physical Exam <Verito Crowder APRN - Last Filed: 08/20/24 21:56> General General appearance: alert and in no apparent distress Head Head exam: atraumatic and normocephalic Eye Eye exam: Present normal appearance and PERRL ENT ENT exam: Present normal exam Neck Neck exam: Present normal inspection Chest Chest inspection: Present normal inspection and symmetric chest wall rise; Absent tenderness Respiratory Respiratory exam: Present normal lung sounds bilaterally Cardiovascular Cardiovascular exam: Present regular rate Abdominal Exam Abdominal exam: Present soft and normal bowel sounds; Absent distention, tenderness, guarding, rebound or diminished bowel sounds Extremities Exam Extremities exam: Present normal inspection and full ROM Back Exam Back exam: Present normal inspection and full ROM Neurological Exam Neurological exam: Present alert and oriented X3 Psychiatric Psychiatric exam: Present normal affect and normal mood Skin Skin exam: Present warm and dry Medical Decision Making <Verito Crowder APRN - Last Filed: 08/20/24 21:56> Medical Records Screening: Per USPSTF and CDC recommendations, given the prevalence of disease in our region, it is our hospital?s policy to screen for HIV and viral Hepatitis for all patients aged 18 and over and those with ongoing risk factors. [place] Inquiry Pt receiving controlled substance: No Vital Signs: 08/20/24 20:30 08/20/24 21:30 08/20/24 22:30 Temperature 97.1 F L Temperature Source Oral Pulse Rate 74 75 Pulse Rate [Right] 70 Respiratory Rate 15 Blood Pressure 105/63 L 102/63 L Blood Pressure [Right Arm] 113/82 Blood Pressure Mean 73 74 Blood Pressure Mean [Right Arm] 92 Blood Pressure Source [Right Arm] Automatic Cuff Blood Pressure Position [Right Arm] Sitting 02 Sat by Pulse Oximetry 100 99 100 Oxygen Delivery Method Room Air 08/20/24 23:00 08/20/24 23:30 08/21/24 00:39 Temperature 98.1 F Temperature Source Pulse Rate 80 80 75 Pulse Rate [Right] Respiratory Rate 16 Blood Pressure 96/61 L 89/60 L 104/67 L Blood Pressure [Right Arm] Blood Pressure Mean 68 67 Blood Pressure Mean [Right Arm] Blood Pressure Source [Right Arm] Blood Pressure Position [Right Arm] 02 Sat by Pulse Oximetry 100 98 Oxygen Delivery Method Room Air Lab Data Lab Results 08/20/24 20:31: Urine Color Yellow, Urine Appearance Clear, Urine pH 8.0, Ur Specific [place] 1.020, Urine Protein Negative, Urine Glucose (UA) Negative, Urine Ketones Negative, Urine Blood Negative, Urine Nitrate Negative, Urine Bilirubin Negative, Urine Urobilinogen 1.0, Ur Leukocyte Esterase Negative, Urine RBC None, Urine WBC None, Ur Squamous Epith Cells 3-5, Amorphous Sediment 1+, Urine Bacteria 1+ 08/20/24 20:49: WBC 6.9, RBC 4.40, Hgb 11.4 L, Hct 35.0 L, MCV 79.5 L, MCH 25.9 L, MCHC 32.6, RDW 14.6, Plt Count 223, MPV 11.4 H, Neut % (Auto) 57.3, Lymph % (Auto) 32.5, [place] % (Auto) 7.8, Eos % (Auto) 1.9, Baso % (Auto) 0.4, Neut # (Auto) 4.0, Lymph # (Auto) 2.3, [place] # (Auto) 0.5, Eos # (Auto) 0.1, Baso # (Auto) 0.0, Sodium 140, Potassium 3.6, Chloride 104, Carbon Dioxide 29, Anion Gap 10.6, BUN 13, Creatinine 0.90, Estimated Creat Clear 130, Estimated GFR 76, Est GFR ( Amer) 92, Glucose 93, Lactate 0.8, Calcium 9.0, Total Bilirubin 0.5, AST 40 H, ALT 20, Alkaline Phosphatase 45, Total Protein 7.4, Albumin 4.4, Globulin 3.0, Albumin/Globulin Ratio 1.5, Lipase 126, Serum HCG, Qual Negative 08/20/24 20:49 08/20/24 20:49 Orders (Tests/Meds): ED MEDICATIONS Generic Name Dose Route Start Last Admin Trade Name Freq PRN Reason Stop Dose Admin Sodium Chloride 10 ml 08/20/24 21:58 08/20/24 21:59 Sodium Chloride 0.9% 10ml Syr (Rad Only) IV 09/19/24 21:57 10 ml NEEDED PRN Administration Maintain IV Site Discontinued Medications Generic Name Dose Route Start Last Admin Trade Name Freq PRN Reason Stop Dose Admin Acetaminophen 1,000 mg 08/20/24 23:11 08/20/24 23:14 Acetaminophen 500mg Tab PO 08/20/24 23:12 1,000 mg ONCE ONE Administration Iopamidol 75 ml 08/20/24 21:58 08/20/24 21:59 Iopamidol-370 (76%);100ml Bottle IV 08/20/24 21:59 75 ml ONCE ONE Administration Ketorolac Tromethamine 30 mg 08/20/24 23:11 08/20/24 23:15 Ketorolac 30mg/Ml Vial IV 08/20/24 23:12 30 mg ONCE ONE Administration Methocarbamol 1,000 mg 08/21/24 00:33 08/21/24 00:37 Methocarbamol 500mg Tablet PO 08/21/24 00:34 1,000 mg ONCE ONE Administration Morphine Sulfate 4 mg 08/20/24 20:43 08/20/24 20:54 Morphine 4mg/Ml Syringe IV 08/20/24 20:44 4 mg ONCE ONE Administration Morphine Sulfate 4 mg 08/20/24 23:11 08/20/24 23:15 Morphine 4mg/Ml Syringe IV 08/20/24 23:12 4 mg ONCE ONE Administration Ondansetron HCl 4 mg 08/20/24 20:43 08/20/24 20:54 Ondansetron 4mg/2ml Vial IV 08/20/24 20:44 Not Given ONCE ONE ORDERS Category Date Time Status CT abdomen pelvis w con Stat Cat Scan 08/20/24 20:43 Completed US transvaginal Stat Exams 08/20/24 23:25 Taken CBC w/Auto Diff [Complete Blood Count Auto Diff] Stat Lab 08/20/24 20:49 Completed CMP [Comprehensive Metabolic Panel] Stat Lab 08/20/24 20:49 Completed Lactic Acid Stat Lab 08/20/24 20:49 Completed Lipase Stat Lab 08/20/24 20:49 Completed Rapid PCR Covid and Flu A/B Stat Lab 08/20/24 21:52 Ordered Serum [HCG Qualitative, Serum] Stat Lab 08/20/24 20:49 Completed Urinalysis and Microscopic Stat Lab 08/20/24 20:31 Completed Medical Decision Narrative: In summary, patient is a 28-year-old female with no significant PMHx who presents to the ED with complaints of right lower quadrant abdominal pain that started this morning on her way to work. Patient states over the day her abdominal pain has progressively worsened. She states she has had nausea, vomiting and chills throughout the day. History of cholecystectomy. States she takes oral control. Denies any additional symptoms. Denies headache, visual disturbances, posterior neck pain, chest pain, shortness of breath, diarrhea, dysuria. Differential diagnosis include appendicitis, mesenteric adenitis, UTI, , ectopic , other infectious process, among others. Upon initial evaluation patient is alert, oriented and cooperative. She is hemodynamically stable. Her physical exam is remarkable for a soft abdomen, right lower quadrant tenderness. No guarding. No CVA tenderness Discussed with patient that we will proceed with hematologic labs and CT of the abdomen pelvis. Patient was given morphine for pain control, she refused Zofran and stated it makes her more nauseous. I reviewed hematologic labs. CBC unremarkable for any leukocytosis, stable H&H. CMP overall unremarkable for any actionable abnormalities. hCG negative. Urinalysis unremarkable for nitrite, leukocytes. Upon signout, CT scan and additional labs pending. Care transferred to Dr. Lemus. <Eleuterio Lemus MD - Last Filed: 08/20/24 23:12> Vital Signs: 04/02/25 20:30 08/20/24 21:30 08/20/24 22:30 Temperature 97.1 F L Temperature Source Oral Pulse Rate 74 75 Pulse Rate [Right] 70 Respiratory Rate 15 Blood Pressure 105/63 L 102/63 L Blood Pressure [Right Arm] 113/82 Blood Pressure Mean 73 74 Blood Pressure Mean [Right Arm] 92 Blood Pressure Source [Right Arm] Automatic Cuff Blood Pressure Position [Right Arm] Sitting 02 Sat by Pulse Oximetry 100 99 100 Oxygen Delivery Method Room Air 08/20/24 23:00 08/20/24 23:30 08/21/24 00:39 Temperature 98.1 F Temperature Source Pulse Rate 80 80 75 Pulse Rate [Right] Respiratory Rate 16 Blood Pressure 96/61 L 89/60 L 104/67 L Blood Pressure [Right Arm] Blood Pressure Mean 68 67 Blood Pressure Mean [Right Arm] Blood Pressure Source [Right Arm] Blood Pressure Position [Right Arm] 02 Sat by Pulse Oximetry 100 98 Oxygen Delivery Method Room Air Lab Data Lab Results 08/20/24 20:31: Urine Color Yellow, Urine Appearance Clear, Urine pH 8.0, Ur Specific [place] 1.020, Urine Protein Negative, Urine Glucose (UA) Negative, Urine Ketones Negative, Urine Blood Negative, Urine Nitrate Negative, Urine Bilirubin Negative, Urine Urobilinogen 1.0, Ur Leukocyte Esterase Negative, Urine RBC None, Urine WBC None, Ur Squamous Epith Cells 3-5, Amorphous Sediment 1+, Urine Bacteria 1+ 08/20/24 20:49: WBC 6.9, RBC 4.40, Hgb 11.4 L, Hct 35.0 L, MCV 79.5 L, MCH 25.9 L, MCHC 32.6, RDW 14.6, Plt Count 223, MPV 11.4 H, Neut % (Auto) 57.3, Lymph % (Auto) 32.5, [place] % (Auto) 7.8, Eos % (Auto) 1.9, Baso % (Auto) 0.4, Neut # (Auto) 4.0, Lymph # (Auto) 2.3, [place] # (Auto) 0.5, Eos # (Auto) 0.1, Baso # (Auto) 0.0, Sodium 140, Potassium 3.6, Chloride 104, Carbon Dioxide 29, Anion Gap 10.6, BUN 13, Creatinine 0.90, Estimated Creat Clear 130, Estimated GFR 76, Est GFR ( Amer) 92, Glucose 93, Lactate 0.8, Calcium 9.0, Total Bilirubin 0.5, AST 40 H, ALT 20, Alkaline Phosphatase 45, Total Protein 7.4, Albumin 4.4, Globulin 3.0, Albumin/Globulin Ratio 1.5, Lipase 126, Serum HCG, Qual Negative Orders (Tests/Meds): ED MEDICATIONS Generic Name Dose Route Start Last Admin Trade Name Freq PRN Reason Stop Dose Admin Sodium Chloride 10 ml 08/20/24 21:58 08/20/24 21:59 Sodium Chloride 0.9% 10ml Syr (Rad Only) IV 09/19/24 21:57 10 ml NEEDED PRN Administration Maintain IV Site Discontinued Medications Generic Name Dose Route Start Last Admin Trade Name Freq PRN Reason Stop Dose Admin Acetaminophen 1,000 mg 08/20/24 23:11 08/20/24 23:14 Acetaminophen 500mg Tab PO 08/20/24 23:12 1,000 mg ONCE ONE Administration Iopamidol 75 ml 08/20/24 21:58 08/20/24 21:59 Iopamidol-370 (76%);100ml Bottle IV 08/20/24 21:59 75 ml ONCE ONE Administration Ketorolac Tromethamine 30 mg 08/20/24 23:11 08/20/24 23:15 Ketorolac 30mg/Ml Vial IV 08/20/24 23:12 30 mg ONCE ONE Administration Methocarbamol 1,000 mg 08/21/24 00:33 08/21/24 00:37 Methocarbamol 500mg Tablet PO 08/21/24 00:34 1,000 mg ONCE ONE Administration Morphine Sulfate 4 mg 08/20/24 20:43 08/20/24 20:54 Morphine 4mg/Ml Syringe IV 08/20/24 20:44 4 mg ONCE ONE Administration Morphine Sulfate 4 mg 08/20/24 23:11 08/20/24 23:15 Morphine 4mg/Ml Syringe IV 08/20/24 23:12 4 mg ONCE ONE Administration Ondansetron HCl 4 mg 08/20/24 20:43 08/20/24 20:54 Ondansetron 4mg/2ml Vial IV 08/20/24 20:44 Not Given ONCE ONE ORDERS Category Date Time Status CT abdomen pelvis w con Stat Cat Scan 08/20/24 20:43 Completed US transvaginal Stat Exams 08/20/24 23:25 Taken CBC w/Auto Diff [Complete Blood Count Auto Diff] Stat Lab 08/20/24 20:49 Completed CMP [Comprehensive Metabolic Panel] Stat Lab 08/20/24 20:49 Completed Lactic Acid Stat Lab 08/20/24 20:49 Completed Lipase Stat Lab 08/20/24 20:49 Completed Rapid PCR Covid and Flu A/B Stat Lab 08/20/24 21:52 Ordered Serum [HCG Qualitative, Serum] Stat Lab 08/20/24 20:49 Completed Urinalysis and Microscopic Stat Lab 08/20/24 20:31 Completed Medical Decision Narrative: In summary, patient is a 28-year-old female with no significant PMHx who presents to the ED with complaints of right lower quadrant abdominal pain that started this morning on her way to work. Patient states over the day her abdominal pain has progressively worsened. She states she has had nausea, vomiting and chills throughout the day. History of cholecystectomy. States she takes oral control. Denies any additional symptoms. Denies headache, visual disturbances, posterior neck pain, chest pain, shortness of breath, diarrhea, dysuria. Differential diagnosis include appendicitis, mesenteric adenitis, UTI, , ectopic , other infectious process, among others. Upon initial evaluation patient is alert, oriented and cooperative. She is hemodynamically stable. Her physical exam is remarkable for a soft abdomen, right lower quadrant tenderness. No guarding. No CVA tenderness Discussed with patient that we will proceed with hematologic labs and CT of the abdomen pelvis. Patient was given morphine for pain control, she refused Zofran and stated it makes her more nauseous. I reviewed hematologic labs. CBC unremarkable for any leukocytosis, stable H&H. CMP overall unremarkable for any actionable abnormalities. hCG negative. Urinalysis unremarkable for nitrite, leukocytes. Upon signout, CT scan and additional labs pending. Care transferred to Dr. Lemus. Eleuterio Lemus: Upon assumption of care patient was hemodynamically stable. Previous workup reviewed by me, hematologic labs are nonactionable no significant leukocytosis or actionable anemia no AINSLEY or critical electrolyte abnormality hCG negative. Urinalysis interpreted by me and not consistent with infection. CT imaging conducted with physiologic appearing left ovarian luteum cyst small volume free fluid in the pelvis, normal appendix and mild constipation. Upon repeat evaluation patient still had significant pain. Given this the only emergent cause of pathology in the right lower quadrant I will be worried about would be ovarian torsion at this point therefore transvaginal ultrasound be ordered, pain medicine will be redosed. This was pending at time of transfer of care to the oncoming physician, Dr. Short. I was consulted by the SANDI, and we discussed the complexity of the problems being addressed. I approved the treatment and management plan for this patient's care in the emergency department, thus performing a substantive portion of the medical decision making. Eleuterio Lemus MD <Emory Short MD - Last Filed: 08/21/24 00:50> Vital Signs: 08/20/24 20:30 08/20/24 21:30 08/20/24 22:30 Temperature 97.1 F L Temperature Source Oral Pulse Rate 74 75 Pulse Rate [Right] 70 Respiratory Rate 15 Blood Pressure 105/63 L 102/63 L Blood Pressure [Right Arm] 113/82 Blood Pressure Mean 73 74 Blood Pressure Mean [Right Arm] 92 Blood Pressure Source [Right Arm] Automatic Cuff Blood Pressure Position [Right Arm] Sitting 02 Sat by Pulse Oximetry 100 99 100 Oxygen Delivery Method Room Air 08/20/24 23:00 08/20/24 23:30 08/21/24 00:39 Temperature 98.1 F Temperature Source Pulse Rate 80 80 75 Pulse Rate [Right] Respiratory Rate 16 Blood Pressure 96/61 L 89/60 L 104/67 L Blood Pressure [Right Arm] Blood Pressure Mean 68 67 Blood Pressure Mean [Right Arm] Blood Pressure Source [Right Arm] Blood Pressure Position [Right Arm] 02 Sat by Pulse Oximetry 100 98 Oxygen Delivery Method Room Air Lab Data Lab Results 08/20/24 20:31: Urine Color Yellow, Urine Appearance Clear, Urine pH 8.0, Ur Specific [place] 1.020, Urine Protein Negative, Urine Glucose (UA) Negative, Urine Ketones Negative, Urine Blood Negative, Urine Nitrate Negative, Urine Bilirubin Negative, Urine Urobilinogen 1.0, Ur Leukocyte Esterase Negative, Urine RBC None, Urine WBC None, Ur Squamous Epith Cells 3-5, Amorphous Sediment 1+, Urine Bacteria 1+ 08/20/24 20:49: WBC 6.9, RBC 4.40, Hgb 11.4 L, Hct 35.0 L, MCV 79.5 L, MCH 25.9 L, MCHC 32.6, RDW 14.6, Plt Count 223, MPV 11.4 H, Neut % (Auto) 57.3, Lymph % (Auto) 32.5, [place] % (Auto) 7.8, Eos % (Auto) 1.9, Baso % (Auto) 0.4, Neut # (Auto) 4.0, Lymph # (Auto) 2.3, [place] # (Auto) 0.5, Eos # (Auto) 0.1, Baso # (Auto) 0.0, Sodium 140, Potassium 3.6, Chloride 104, Carbon Dioxide 29, Anion Gap 10.6, BUN 13, Creatinine 0.90, Estimated Creat Clear 130, Estimated GFR 76, Est GFR ( Amer) 92, Glucose 93, Lactate 0.8, Calcium 9.0, Total Bilirubin 0.5, AST 40 H, ALT 20, Alkaline Phosphatase 45, Total Protein 7.4, Albumin 4.4, Globulin 3.0, Albumin/Globulin Ratio 1.5, Lipase 126, Serum HCG, Qual Negative Orders (Tests/Meds): ED MEDICATIONS Generic Name Dose Route Start Last Admin Trade Name Freq PRN Reason Stop Dose Admin Sodium Chloride 10 ml 08/20/24 21:58 08/20/24 21:59 Sodium Chloride 0.9% 10ml Syr (Rad Only) IV 09/19/24 21:57 10 ml NEEDED PRN Administration Maintain IV Site Discontinued Medications Generic Name Dose Route Start Last Admin Trade Name Freq PRN Reason Stop Dose Admin Acetaminophen 1,000 mg 08/20/24 23:11 08/20/24 23:14 Acetaminophen 500mg Tab PO 08/20/24 23:12 1,000 mg ONCE ONE Administration Iopamidol 75 ml 08/20/24 21:58 08/20/24 21:59 Iopamidol-370 (76%);100ml Bottle IV 08/20/24 21:59 75 ml ONCE ONE Administration Ketorolac Tromethamine 30 mg 08/20/24 23:11 08/20/24 23:15 Ketorolac 30mg/Ml Vial IV 08/20/24 23:12 30 mg ONCE ONE Administration Methocarbamol 1,000 mg 08/21/24 00:33 08/21/24 00:37 Methocarbamol 500mg Tablet PO 08/21/24 00:34 1,000 mg ONCE ONE Administration Morphine Sulfate 4 mg 08/20/24 20:43 08/20/24 20:54 Morphine 4mg/Ml Syringe IV 08/20/24 20:44 4 mg ONCE ONE Administration Morphine Sulfate 4 mg 08/20/24 23:11 08/20/24 23:15 Morphine 4mg/Ml Syringe IV 08/20/24 23:12 4 mg ONCE ONE Administration Ondansetron HCl 4 mg 08/20/24 20:43 08/20/24 20:54 Ondansetron 4mg/2ml Vial IV 08/20/24 20:44 Not Given ONCE ONE ORDERS Category Date Time Status CT abdomen pelvis w con Stat Cat Scan 08/20/24 20:43 Completed US transvaginal Stat Exams 08/20/24 23:25 Taken CBC w/Auto Diff [Complete Blood Count Auto Diff] Stat Lab 08/20/24 20:49 Completed CMP [Comprehensive Metabolic Panel] Stat Lab 08/20/24 20:49 Completed Lactic Acid Stat Lab 08/20/24 20:49 Completed Lipase Stat Lab 08/20/24 20:49 Completed Rapid PCR Covid and Flu A/B Stat Lab 08/20/24 21:52 Ordered Serum [HCG Qualitative, Serum] Stat Lab 08/20/24 20:49 Completed Urinalysis and Microscopic Stat Lab 08/20/24 20:31 Completed Medical Decision Narrative: In summary, patient is a 28-year-old female with no significant PMHx who presents to the ED with complaints of right lower quadrant abdominal pain that started this morning on her way to work. Patient states over the day her abdominal pain has progressively worsened. She states she has had nausea, vomiting and chills throughout the day. History of cholecystectomy. States she takes oral control. Denies any additional symptoms. Denies headache, visual disturbances, posterior neck pain, chest pain, shortness of breath, diarrhea, dysuria. Differential diagnosis include appendicitis, mesenteric adenitis, UTI, , ectopic , other infectious process, among others. Upon initial evaluation patient is alert, oriented and cooperative. She is hemodynamically stable. Her physical exam is remarkable for a soft abdomen, right lower quadrant tenderness. No guarding. No CVA tenderness Discussed with patient that we will proceed with hematologic labs and CT of the abdomen pelvis. Patient was given morphine for pain control, she refused Zofran and stated it makes her more nauseous. I reviewed hematologic labs. CBC unremarkable for any leukocytosis, stable H&H. CMP overall unremarkable for any actionable abnormalities. hCG negative. Urinalysis unremarkable for nitrite, leukocytes. Upon signout, CT scan and additional labs pending. Care transferred to Dr. Lemus. Eleuterio Lemus: Upon assumption of care patient was hemodynamically stable. Previous workup reviewed by me, hematologic labs are nonactionable no significant leukocytosis or actionable anemia no AINSLEY or critical electrolyte abnormality hCG negative. Urinalysis interpreted by me and not consistent with infection. CT imaging conducted with physiologic appearing left ovarian luteum cyst small volume free fluid in the pelvis, normal appendix and mild constipation. Upon repeat evaluation patient still had significant pain. Given this the only emergent cause of pathology in the right lower quadrant I will be worried about would be ovarian torsion at this point therefore transvaginal ultrasound be ordered, pain medicine will be redosed. This was pending at time of transfer of care to the oncoming physician, Dr. Short. I was consulted by the SANDI, and we discussed the complexity of the problems being addressed. I approved the treatment and management plan for this patient's care in the emergency department, thus performing a substantive portion of the medical decision making. MD Han Walters MD: I assumed care of the patient at the time of handoff from the prior provider. On reassessment patients pain not significantly improved. Remains tender in the right lower quadrant on exam. On history and sounds like her pain is primarily worsened with movement, given this it could be more muscular. Transvaginal ultrasound shows no evidence of torsion on the right, does show a likely recently ruptured cyst on the left with a small amount of free fluid. Also shows that the uterine lining is fairly thickened. I discussed these findings with the patient and recommended she follow-up with her SOCIAL ORGANIZATION PROFESSOR and PCP for further assessment. I gave her a dose of Robaxin in the ER and discharged her with prescription for Robaxin. Critical Care <Verito Crowder APRN - Last Filed: 08/20/24 21:56> Critical Care Time Critical Care Time: No
[2024-08-20 21:24] LABS: HCG Qualitative, Serum Negative (Negative)
[2024-08-20 21:30] VITALS: BP 105/63; PULSE 74; O2SAT 99
[2024-08-20 21:30] LABS: Amorphous Sediment,Urine 1+ /lpf; Bacteria,Urine 1+ /lpf
[2024-08-20] MEDS: SODIUM CHLORIDE 0.9% 10ML SYR (RAD ONLY) 10 ML IV (21:59)
[2024-08-20] MEDS: IOPAMIDOL-370 (76%);100ML BOTTLE 75 ML IV (21:59)
[2024-08-20 22:30] VITALS: BP 102/63; PULSE 75; O2SAT 100
[2024-08-20 23:00] VITALS: BP 96/61; PULSE 80; O2SAT 100
[2024-08-20] MEDS: ACETAMINOPHEN 500MG TAB 1000 MG PO (23:14)
[2024-08-20] MEDS: KETOROLAC 30MG/ML VIAL 30 MG IV (23:15)
--- NOTE | 2024-08-20 23:25 | US_ITS ---
PROCEDURE INFORMATION: Exam: US Pelvis, Transvaginal, Non-Obstetric Exam date and time: 08/20/2024 11:25 PM Age: 28 years old Clinical indication: Pelvic pain; Additional info: Rlq pain TECHNIQUE: Imaging protocol: Real-time transvaginal pelvic (non-obstetric) ultrasound with image documentation. Transvaginal imaging was used for better evaluation of the endometrium, adnexa, and/or cervix. COMPARISON: CT ABDOMEN PELVIS W CON 08/20/2024 9:47 PM FINDINGS: Uterus: Uterus is unremarkable measures 8.9 x 5.8 x 6.2 cm. Endometrial stripe is unremarkable and measures 1.3. Right ovary/adnexa: Normal. No mass. Normal ovarian blood flow on color Doppler. Measures 2.9 x 2.7 cm. Left ovary/adnexa: Normal. No mass. Normal ovarian blood flow on color Doppler. Measures 4.2 x 2.3 x 1 cm. Corpus luteal cyst measuring 1.7 x 1.4 cm. Intraperitoneal space: Tiny cul-de-sac free fluid collection. IMPRESSION: Small left corpus luteal cyst, likely ruptured with tiny physiologic cul-de-sac free fluid collection.
[2024-08-20 23:30] VITALS: BP 89/60; PULSE 80; O2SAT 98
--- NOTE | 2024-08-20 23:42 | PC.NURSE ---
Pt to ultrasound
--- NOTE | 2024-08-21 00:09 | PC.NURSE ---
Pt back from ultrasound
[2024-08-21] MEDS: METHOCARBAMOL 500MG TABLET 1000 MG PO (00:37)
[2024-08-21 00:39] VITALS: BP 104/67; PULSE 75; RESP 16; TEMP 36.7; O2SAT 100
== END 2024-08-21 00:48 | disposition home or self-care (01) ==
PROVIDERS: Emergency Medicine; Nurse Practitioner; Emergency Provider Emergency Medicine
DX: R10.31 Right lower quadrant pain (principal); R11.2 Nausea with vomiting, unspecified; R68.83 Chills (without fever)
CPT/HCPCS: 74177; 76830; 80053; 81001; 83605; 83690; 84703; 85025; 96374; 96375; 96376; 99285; J1885; J2270; Q9967

== ENCOUNTER 2024-09-25 15:02 | Outpatient (CLI) | payer MEDICAID, SELFPAY ==
[2024-09-25 15:49] LABS: Coronavirus 19, PCR Not Detected (NotDetected); Influenza A, PCR Not Detected (NotDetected); Influenza B, PCR Not Detected (NotDetected); Respiratory Syncytial Virus Not Detected (NotDetected)
[2024-09-25 17:24] LABS: Human Rhinovirus Detected (NotDetected)
== END 2024-09-25 23:59 | disposition home or self-care (01) ==
LOC: LAB.DROPOF 09-26 13:22
PROVIDERS: PCP Nurse Practitioner; Visit Provider Nurse Practitioner
DX: R05.9 Cough, unspecified (principal); J02.9 Acute pharyngitis, unspecified
CPT/HCPCS: 87631

== ENCOUNTER 2024-10-07 09:25 | Outpatient (CLI) | payer MEDICAID, SELFPAY ==
[2024-10-08 13:11] LABS: Prolactin 7.4 ng/mL (4.8-33.4)
== END 2024-10-07 23:59 | disposition home or self-care (01) ==
LOC: LAB 09:26
PROVIDERS: PCP Nurse Practitioner Family; Visit Provider Obstetrics & Gynecology
DX: N64.4 Mastodynia (principal)
CPT/HCPCS: 36415; 84146

== ENCOUNTER 2024-10-09 07:44 | Outpatient (CLI) | payer MEDICAID, SELFPAY ==
--- NOTE | 2024-10-09 08:00 | US_ITS ---
PROCEDURE INFORMATION: Exam: US Right Breast, Complete Exam date and time: 10/09/2024 7:44 AM Age: 28 years old Clinical indication: Concern for right breast lump. TECHNIQUE: Imaging protocol: Complete ultrasound of all four quadrants of the right breast and the retroareolar regions, including ultrasound of the axilla when performed. COMPARISON: No relevant prior studies available. FINDINGS: ULTRASOUND: Breast ultrasound findings: By sonography, all 4 quadrants, retroareolar and the axilla. At the palpable concern at 9-10 o'clock and 10 o'clock 8 cm from the nipple no sonographic findings demonstrated. At 8 o'clock 6 cm from the nipple, superficial echogenic mass with a lucent center, measuring 0.9 x 0.5 x 0.4 cm, this suggests a hematoma possibly though there is questionable related Doppler flow. No other findings demonstrated. Sonographically unremarkable axillary lymph node. IMPRESSION: See comments Patient will be recalled for right diagnostic mammography with spot compression and the palpable concern as negative on sonography.Further evaluation of a palpable abnormality should be based on clinical grounds regardless of radiographic findings or lack thereof. Incidental echogenic mass at 8 o'clock, possibly a hematoma, suggest clinical correlation four-week follow-up right sonography unless otherwise clinically indicated. ASSESSMENT: BI-RADS Category 0: Incomplete: Need Additional Imaging Evaluation.
== END 2024-10-09 23:59 | disposition home or self-care (01) ==
LOC: RAD 07:45
PROVIDERS: PCP Nurse Practitioner Family; Visit Provider Obstetrics & Gynecology
DX: N63.13 Unspecified lump in the right breast, lower outer quadrant (principal); N64.4 Mastodynia
CPT/HCPCS: 76641

== ENCOUNTER 2024-10-21 13:46 | Outpatient (CLI) | payer MEDICAID, SELFPAY ==
--- NOTE | 2024-10-21 14:00 | MM_ITS ---
PROCEDURE INFORMATION: Exam: Right Diagnostic Breast Tomosynthesis Exam date and time: 10/21/2024 1:52 PM Age: 28 years old Clinical indication: Recall on the basis of sonography 10/09/2024 for evaluation of right breast lump. TECHNIQUE: Imaging protocol: Right Diagnostic tomosynthesis and 2D mammography including computer-aided detection (CAD) when performed. Unilateral or bilateral exam. Triangular marker placed at the palpable concern. Impression added. COMPARISON: US BREAST RT COMPLETE 10/09/2024 7:44 AM FINDINGS: MAMMOGRAPHY: Breast mammogram findings: Breast composition: There are scattered areas of fibroglandular density. Mass: At the palpable concern, suggestion of lucent 1.4 cm superficial mass the skin in the upper outer quadrant middle 3rd. No suspicious mass. Architectural distortion: None. Calcifications: No suspicious calcifications. Asymmetric density: None. Skin thickening: None. Axillary adenopathy: None. IMPRESSION: See comment Suggestion of lucent superficial mass related to the palpable concern, suggest following ultrasound recommendation from 10/09/2024 of four-week follow-up sonography, with further management pending that result. Further evaluation of a palpable abnormality should be based on clinical grounds regardless of radiographic findings or lack thereof. ASSESSMENT: BI-RADS Category 3: Probably benign.
== END 2024-10-21 23:59 | disposition home or self-care (01) ==
LOC: RAD 13:47
PROVIDERS: PCP Nurse Practitioner Family; Visit Provider Obstetrics & Gynecology
DX: R92.321 Mammographic fibroglandular density, right breast (principal); R92.8 Other abnormal and inconclusive findings on diagnostic imaging of breast
CPT/HCPCS: 77061; 77065; G0279

== ENCOUNTER 2024-11-06 07:46 | Outpatient (CLI) | payer MEDICAID, SELFPAY ==
--- NOTE | 2024-11-06 08:00 | US_ITS ---
PROCEDURE INFORMATION: Exam: US Right Breast, Complete Exam date and time: 11/06/2024 7:46 AM Age: 28 years old Clinical indication: Follow-up of a right breast palpable radiolucent mass. TECHNIQUE: Imaging protocol: Complete ultrasound of all four quadrants of the right breast and the retroareolar regions, including ultrasound of the axilla when performed. COMPARISON: US BREAST RT COMPLETE 10/09/2024 7:44 AM FINDINGS: ULTRASOUND: Breast ultrasound findings: Scanning of the right breast is performed. In the 8 o'clock axis, 10 cm from the nipple there is a benign area of fat necrosis/oil cyst measuring 0.8 x 0.7 x 0.3 cm. There is no suspicious mass, shadowing, or distortion. No axillary adenopathy. IMPRESSION: 1. No sonographic evidence of malignancy. Benign fat necrosis in the right breast 8 o'clock axis. 2. Further evaluation of a palpable abnormality should be based on clinical grounds regardless of radiographic findings or lack thereof. ASSESSMENT: BI-RADS Category 2: Benign.
== END 2024-11-06 23:59 | disposition home or self-care (01) ==
LOC: RAD 07:48
PROVIDERS: PCP Nurse Practitioner Family; Referring Provider Obstetrics & Gynecology; Visit Provider Obstetrics & Gynecology
DX: N64.1 Fat necrosis of breast (principal); N63.10 Unspecified lump in the right breast, unspecified quadrant
CPT/HCPCS: 76641

== ENCOUNTER 2024-11-23 21:04 | Emergency (ER) | payer MEDICAID, SELFPAY ==
--- OUTSIDE RECORDS SUMMARY | 2017-06-11 04:35 | XMS_ITS | Continuity of Care Document ---
Author Organization [facility] Address [address] [place] [address] Phone Care Team Providers Care Plate Developer Name Role Phone Branden Guaman MD Unavailable Unavailable Procedures Procedure Date URINE TEST Walk In Test Advance Directives Directive Yes / No Effective Date File Name No Information Encounters Encounter Description Practice Location Reason(s) For Visit Diagnoses Date Provider Providers Copied on Encounter [facility], [address] [place] [address], [id number], tel:[phone] [facility] Dept Walk in Test (chief complaint) Encounter for test, result negative Rowena Otero. [address] [place], [place], [id number], [place]. tel:[phone] Family History Family Member Type Diagnosis Age At Onset No Information Payers Payer name Insurance type Covered democrat ID Authorlucas landis(s) Raysa [id number] Social History Type Description Quantity Date Captured [...]
--- OUTSIDE RECORDS SUMMARY | 2022-02-18 20:00 | XMS_ITS | Continuity of Care Document ---
Author Organization [facility] Address [address] [place] [address] Phone Care Team Providers Care Swatch Cutter Name Role Phone Unavailable Unavailable Unavailable Allergies, [...] Date Provider Providers Copied on Encounter [facility], [address] [place] [address], [id number], tel:[phone] ON Conversion No Information No Information Family History Family Member Type Diagnosis Age At Onset No Information Payers Payer name Insurance type Covered democrat ID Authoriza tion(s) No Information Social History [...]
--- OUTSIDE RECORDS SUMMARY | 2022-12-06 07:59 | XMS_ITS | Continuity of Care Document ---
Author Organization [facility] Address [address] [place] [address] Phone Care Team Providers Care Collection Specialist Name Role Phone Demetrius DO Rik Unavailable Unavailable Allergies, Adverse Reactions, Alerts Substance Reaction Status Criticality TRAMADOL HCL Active No Information Medications Medication Instructions Dosage Effective Dates (start - stop) Status Comments 06/09 () 1 mg-20 mcg (21)/75 mg (7) tablet take 1 tablet by oral route every day 1.00 tablet - Active levothyroxine 125 mcg tablet take 1 tablet by oral route every day 125 MCG - Active 06/09 () 1 mg-20 mcg (21)/75 mg (7) tablet take 1 tablet by oral route every day 1.00 tablet - No Longer Active Procedures Procedure Date Estab - Low (-) Preven Meds E&m Estab Pt; 18-39 - 022 Brief Emotional/Behave Assessment Pp Care Only (separt Proc) Postop F/u Visit Incld Global 2 Regular Ob Visit Regular Ob Visit Non-stress Test Regular Ob Visit Echo-limited Immuniz Admin; 1/combo Vacc/to 22 TDAP VACCINE >7 IM Regular Ob Visit Regular Ob Visit Regular Ob Visit Regular Ob Visit Regular Ob Visit Routine Venipunct/finger/heel 2 Regular Ob Visit Routine Venipunct/finger/heel 2 Regular Ob Visit Echo Cmplt>14wks Single B-scan 22 Echo/OB/Transvaginal Regular Ob Visit Regular Ob Visit Estab Pt Ob - Moderate (30-39) 21 Echo/OB/Transvaginal Routine Venipunct/finger/heel 1 Estab - Minimal (10-19) Routine Venipunct/finger/heel 1 Estab - Minimal (10-19) Routine Venipunct/finger/heel 1 Cytpth Cerv/vag; Manual Scrn-s 21 Init Preven Meds E&m New Pt; 18-39 Advance Directives Directive Yes / No Effective Date File Name No Information Encounters Encounter Description Practice Location Reason(s) For Visit Diagnoses Date Provider Providers Copied on Encounter [facility], [address], [place], [place], [address] [place] [address], tel:[phone] [facility] No Information 3 Demetrius Elliott. [address] [place] [address], [place], [place], [address] [place] [address] , [place]. tel:[phone] [facility], [address], [place], [place], [id number], [place] tel:[phone] [facility] ([place]) No Information 3 Demetrius Elliott. [address] [place] [address], [place] [address], [place], [place], [id number] , [place]. tel:[phone] Estab - Low (20-29) [facility], [address], [place], [place], [address] [place] [address], tel:[phone] [facility] (old) Consult (chief complaint) Fatigue 3 Demetrius Elliott. [address] [place] [address], [address] [facility], [place], [place], [address] [place] [address] , . tel:[phone] Preven Meds E&m Estab Pt; 18-39 [facility], [address], [place], [address] [place] [address], tel:[phone] [facility] (old) annual exam (chief complaint) Encounter for gynecological examination (general) (routine) without abnormal findings 2 Demetrius Elliott. [address] [place] [address], [address] [facility], [place], [address] [place] [address] , . tel:[phone] [facility], [address], [place], [address] [place] [address], tel:[phone] [facility] (old) check (chief complaint) Encounter for screening for maternal depressionEncoun ter for routine follow-up 2 Demetrius Elliott. [address] [place] [address], [address] [facility], [place], [address] [place] [address] , . tel:[phone] [facility], [address], [place], [place], [id number], tel:[phone] [facility] (old) incision check (chief complaint) Encounter for routine follow-up 2 Demetrius Elliott. [address] [place] [address], [address] [facility], [place], [address] [place] [address] , . tel:[phone] [facility], [address], [place], [place], [id number], tel:[phone] [facility] F/U from hospital (chief complaint)sti ll having contractions (chief complaint)thi nks she lost her mucus plug (chief complaint) No Information 2 Ivy Bai . [address] [place] [address], [address] [facility], [place], [address] [place] [address] , [place]. tel: [phone] [facility], [address], [place], [address] [place] [address], [place] tel:[phone] [facility] ([place]) Encntr for suprvsn of normal first preg, third [id number] weeks gestation of 2 Demetrius Elliott. [address] [place] [address], [address] [place] [address], [address] [place] [address] , . tel: [phone] [facility], [address], [place], [address] [place] [address], [place] tel:[phone] [facility] routine (chief complaint) Encntr for suprvsn of normal first preg, third weeks gestation of 2 Demetrius Elliott. [address] [place] [address], [address] [place] [address], [address] [place] [address] , . tel: [phone] [facility], [address], [place], [address] [place] [address], [place] tel:[phone] [facility] (old) Encntr for suprvsn of normal first preg, third weeks gestation of 2 Demetrius Elliott. [address] [place] [address], [address] [place] [address], [address] [place] [address] , . tel: [phone] [facility], [address], [place], [address] [place] [address], [place] tel:[phone] [facility] ([place]) Encntr for suprvsn of normal first preg, third [id number] weeks gestation of 2 Demetrius Elliott. [address] [place] [address], [address] [facility], [place], [address] [place] [address] , . tel: [phone] [facility], [address], [place], [place], [id number], [place] tel:[phone] [facility] (old) Encntr for suprvsn of normal first preg, third [id number] weeks gestation of 2 Demetrius Elliott. [address] [place] [address], [address] [facility], [place], [address] [place] [address] , . tel: [phone] [facility], [address], [place], [address] [place] [address], tel:[phone] [facility] ([place]) Encntr for suprvsn of normal first preg, third [id number] weeks gestation of 2 Demetrius Elliott. [address] [place] [address], [address] [facility], [place], [address] [place] [address] , . tel: [phone] [facility], [address], [place], [address] [place] [address], tel:[phone] [facility] [place] (old) Encntr for suprvsn of normal first preg, third [id number] weeks gestation of 2 Demetrius Elliott. [address] [place] [address], [place] [address], [place], [address] [place] [address] , . tel: [phone] [facility], [address], [place], [address] [place] [address], [place] tel:[phone] [facility] ([place]) No Information 2 Demetrius Elliott. [address] [place] [address], [place] [address], [place], [address] [place] [address] , . tel: [phone] [facility], [address], [place], [address] [place] [address], [place] tel:[phone] [facility] ([place]) Encntr for suprvsn of normal first preg, second [id number] weeks gestation of 2 Demetrius Elliott. [address] [place] [address], [place] [address], [place], [address] [place] [address] , . tel: [phone] [facility], [address], [place], [address] [place] [address], [place] tel:[phone] [facility] ([place]) No Information 2 Demetrius Elliott. [address] [place] [address], [address] [facility], [place], [address] [place] [address] , . tel: [phone] [facility], [address], [place], [address] [place] [address], [place] tel:[phone] [facility] routine (chief complaint) Encounter for supervision of other normal , second trimesterScreen for STD (sexually transmitted disease) 2 Ivy JARQUIN Bhumika . [address] [place] [address], [address] [facility], [place], [address] [place] [address] , [place]. tel: [phone] [facility], [address], [place], [address] [place] [address], tel:[phone] [facility] No Information 2 Demetrius Elliott. [address] [place] [address], [place] [address], [place], [address] [place] [address] , . tel: [phone] [facility], [address], [place], [address] [place] [address], [place] tel:[phone] [facility] (old) Encounter for suprvsn of normal , second [id number] weeks gestation of 2 Demetrius Elliott. [address] [place] [address], [place] [address], [place], [address] [place] [address] , . tel: [phone] [facility], [address], [place], [address] [place] [address], tel:[phone] [facility] (old) Encntr for suprvsn of normal first preg, first [id number] weeks gestation of 2 Demetrius Elliott. [address] [place] [address], [place] [address], [place], [address] [place] [address] , . tel: [phone] Estab Pt Ob - Moderate (30-39) [facility], [address], [place], [address] [place] [address], tel:[phone] [facility] confirmed preg (chief complaint) Normal in first trimester 1 Slates BRITTON Bai . [facility], [address] [facility], [place], [address] [place] [address] , [place]. tel: [phone] [facility], [address], [place], [address] [place] [address], [place] tel:[phone] [facility] No Information 1 Demetrius Elliott. [facility], [place], [address] [place] [address] , [place]. tel: [phone] [facility], [address], [place], [address] [place] [address], [place] tel:[phone] [facility] ([place]) No Information 1 Slates BRITTON aBi . [address] [place] [address], [address] [facility], [place], [address] [place] [address] , . tel: [phone] Estab - Minimal (03-08) [facility], [address], [place], [address] [place] [address], [place] tel:[phone] [facility] [place] ([place]) irregular bleeding f/u (chief complaint) Irregular bleeding 1 Slates BRITTON Bai . [address] [place] [address], [address] [facility], [place], [address] [place] [address] , [place]. tel: [phone] [facility], [address], [place], [place], [id number], [place] tel:[phone] [facility] [place] (old) No Information 1 Slates BRITTON Bai . [address] [place] [address], [address] [facility], [place], [address] [place] [address] , [place]. tel: [phone] Estab - Minimal (03-08) [facility], [address], [place], [place], [id number], [place] tel:[phone] [facility] (old) missed periods (chief complaint) Missed period 1 Slates BRITTON Bai . [address] [place], [place] [address], [address], [place], [place], [id number] , [place]. tel:[phone] Init Preven Meds E&m New Pt; 18-39 [facility], [address], [place], [place], [id number], [place] tel:[phone] [facility] [place] ([place]) annual exam (chief complaint) Encounter for gynecological examination (general) (routine) without abnormal findingsMissed periodPre-concep tion counselingScreen for STD (sexually transmitted disease) 1 Ivy BRITTON Bhumika . [facility], [address], [place], [place], [id number] , [place]. tel:[phone] Family History Family Member Type Diagnosis Age At Onset Father Problem Thyroid disease Mother Problem Diabetes mellitus Mother Problem hypertension Father Problem hypertension Father Problem hypercholesterolemia Immunizations Vaccine Date Status Comments Tdap administered Source: [facility] unization Record Payers Payer name Insurance type Covered republican ID Authoriza tibetzaida(s) [facility] ([facility]) [id number] Social History Type Description Quantity Date Captured Comments Sex Female Smoking Status No Information Chief Complaint And Reason For Visit No Information Reason For Referral Reason For Referral No Information Plan Of Treatment Date Type Action Status Future Order: Lab Order Beta-hCG , Serum, (Quantitative) (HCGT), Collected on: Ordered Future Order: Lab Order DHEA-Sul fate (DHS), Collected on: Ordered Future Order: Lab Order Glucose, Fasting (FBS), Collected on: Ordered Future Order: Lab Order Insulin Fasting (INSUF), Collected on: Ordered Future Order: Lab Order Prolacti n (PROLA), Collected on: Ordered Future Order: Lab Order Testoste gerri, Total LC-MS/MS (TETOT), Collected on: Ordered Future Order: Lab Order Beta-hCG , Serum, (Quantitative) (HCGT), Collected on: Ordered Future Order: Lab Order Prolacti n (PROLA), Collected on: Ordered Future Order: Lab Order Candice talley, Total LC-MS/MS (TETOT), Collected on: Ordered Future Order: Lab Order DHEA-Sul fate (DHS), Collected on: Ordered Future Order: Lab Order Glucose, Fasting (FBS), Collected on: Ordered Future Order: Lab Order Insulin Fasting (INSUF), Collected on: Ordered Future Order: Lab Order Hemoglob in A1C (HA1C), Collected on: Ordered History Of Present Illness Encounter Date Complaint History Of Ishmael nt Illness Consult Pt. presents for a consult to discuss control. Wants to start a pill.TSH was checked and saritha wants OCP to see if this helps her feel bettervery tired annual exam Currently pregna nt: yes. : 2. spontaneous: 1. The patient states using none for control. Negative for: breast discharge, breast lump(s) and breast pain. Positive for: breast self exam. Pertinent negatives include abnormal vaginal bleeding. Additional information: Annual exam. doing well. no complaints. regular cyclesVASECTOMY. check The patient has no feeding complications, nursing difficulties, breast problems, vaginal bleeding, urinary problems or bowel problems. A depression screening was completed. The patient has no history of domestic violence or gestational diabetes. The patient has not resumed sexual activity, work or exercise. The patient has no section incisional drainage, section incisional pain or episiotomy/laceration pain. Additional Information: doing wellbaby is wellno depressionno bleedingno painincision healedno contraception. incision check pt. delivered vi a 11/[facility].doing wellbaby is in the NICUshe had to labor and push and then proceeded to because of big baby F/U from hospital still having contractions thinks she lost her mucus plug routine routine confirmed preg irregular bleeding f/u -pt here for continued irregular bleeding. -says that when she was young, periods were irregular and she was on ocps. stopped those is about 2017-. says that for 2-3 years, was normal. then missed her period in apr and may. came in here in jun and did a p4 withdrawal and she did bleed. then no period in july and none so far in august. she is not trying to conceive , but would like to in about a year. wants to find out what's wrong. she is under a lot of stress with family issues. -her thyroid is abn. says that her PCP tried a med once and she had a reaction. they are not wanting to correct it at this time (per pt), bc it is not that abn missed periods pt's LMP was mar 28. she had been in office 06/01. advised that if she skipped the whole month of may, to come in. -says that prior to mar, periods were monthly and regular. having some family issues. -at last appt, said that she had wanted to get , now says that she'd be fine with , but are no longer actively going to try. annual exam Currently pregna nt: no.Patient is contemplating . The patient states she uses none for control. Last LMP was 03/28/2020. Her menses is regular. Negative for: breast discharge, breast lump(s) and breast pain. Positive for: breast self exam. Menopausal symptoms negative for: hot flashes, insomnia, night sweats and vaginal dryness. Associated symptoms include anxiety and vaginal discharge. Pertinent negatives include abnormal bleeding (hematology), abnormal vaginal bleeding, decreased libido, depression, difficulty falling sleep, dyspareunia, history of infertility, nocturia, sexual dysfunction, sleep disturbances, urinary incontinence, urinary urgency and vaginal itching. The patient no longer uses tobacco. Additional information: -pt here for MARVIN-has never had pap. -used ocps until 2017. had miscarriage with an ex. -no ocps in 2018 and 2019. has been with current partner since jan and says that they have been trying to get since jan. periods were regular, monthly, then missed her period in apr. went to her previous [facility] and they did a quant and was negative. she says that they are too hard to get into , so she doesn't want to go back. *works at [employer] and [employer]. Functional Status Date Functional Assessmen t No Information Instructions Date Instruction Additional Infor mation travel tobacco (ask, advise , assess, assist and arrange) alcohol illicit / recreational drugs use of any medicatio ns (including supplements, vitamins, herbs, OTC drugs) smoking counseling environmental / work hazards domestic violence seat belt use childbirth classes / hospital facilities Caffeine use discussed Ob packet reviewed Information given an d patient counseled on Tdap. HIV and other routine t ests risk factors identif ied by history anticipated course of c are nutrition and weight gain counseling, special diet toxoplasmosis precau tions (cats / raw meat) sexual activity exercise indications for ultrasound influenza vaccine will get fasting lab s. will send another round of prometrium to force. will manage accordingly. Related to Irregular bleeding will try a p4 withdr awal. will get some baseline labs. call if no bleeding. if bleeds, just monitor. Related to Missed period since only one misse d period, would monitor. if no period by end may, would take and call, for labs. can force period. if period, would just monitor. Related to Missed period discussed tracking p eriods/ovulation, opk, PNV, healthy diet/exercise/lifestyle, timed/frequent intercourse. Related to Pre-conception counseling pap today. will call with anything abn. Related to Encounter for gynecological examination (general) (routine) without abnormal findings Assessments Type Assessment Date No Information Patient Care Teams Name Effective Dates (start - stop) Status Members No Information
--- NOTE | 2024-11-23 22:33 | XR_ITS ---
PROCEDURE INFORMATION: Exam: XR Right Knee Exam date and time: 11/23/2024 10:54 PM Age: 28 years old Clinical indication: Injury or trauma; Fall; Blunt trauma; Knee; Right; Additional info: Fall, right knee pain TECHNIQUE: Imaging protocol: Radiologic exam of the right knee. Views: 1 or 2 views. COMPARISON: No relevant prior studies available. FINDINGS: Bones/joints: Normal. Soft tissues: Normal. IMPRESSION: No acute findings.
[2024-11-23 22:36] VITALS: BP 120/82; PULSE 86; RESP 16; TEMP 37.2; O2SAT 100; BMI 29.0
[2024-11-23] MEDS: IBUPROFEN 600 MG TABLET PO (22:44)
[2024-11-23] MEDS: ACETAMINOPHEN 500MG TAB 1000 MG PO (22:44)
--- NOTE | 2024-11-23 23:14 | HMH.EDGENADL ---
Discharge Plan Disposition Patient Disposition: Home, Self-Care Prescriptions Prescriptions: New cephalexin 500 mg capsule 500 mg PO BID 7 Days Qty: 14 0RF Referrals Follow up/Referrals: Shania Mtz APRN [Primary Care Provider, Medical] - See instructions Activity Restrictions/Add. Instructions Additional Instructions/Restrictions: Take the antibiotics as prescribed. You can take Tylenol and ibuprofen to help with pain. If you develop any new or worsening symptoms, or if you become concerned for your health for any reason, return to the emergency department for evaluation Clinical Impressions Clinical Impression: Cellulitis of knee, right, Abrasion of knee, right Stand Alone Forms Stand Alone Forms: Work/School Release Instructions Patient Instructions: DI for Laceration Repair Print Language Print Language: [place] Discharge ED Provider: Otto Carr General Adult HPI General Chief complaint: Wound/Laceration Stated complaint: Injury right leg possible infected Time Seen by Provider: 11/23/24 22:17 Mode of Arrival: Ambulatory Description of Symptoms (Recalled from ER Triage Doc. by RN): wound to right knee appears infected History of Present Illness HPI narrative: Nick Garvey is a 28-year-old female with a history of bipolar disorder who presents to the emergency department for a wound to her right knee. Patient states that she fell on concrete sidewalk 6 days ago and scraped her right knee. Over the last 1 to 2 days, she has had worsening pain to her right knee that radiates down her leg. She states that is difficult to bend knee due to the pain. She takes Tylenol and ibuprofen and last took it yesterday. She did not have it evaluated at the time of the incident. Related Data Previous Rx's ?Medication ?Instructions ?Recorded cephalexin 500 mg capsule 500 mg PO BID 7 days #14 caps 11/23/24 Allergies Allergy/AdvReac Type Severity Reaction Status Date / Time tramadol Allergy Verified 10/07/24 08:43 [facility] Disclaimer: The information contained in this section may have been updated after the patient was seen, as this information can be updated by other users. Medical History Viral upper respiratory infection Galactorrhea History of anemia Hypothyroid ADHD Sciatica Depression Anxiety Surgical History History of surgery on lower extremity History of cholecystectomy History of Family History Grandfather Cancer Kidney disease Family/Other Cancer Mother Hypertension Father Hypertension Stroke Social History Smoking Status: Never smoker alcohol intake: current alcohol intake frequency: holidays/special occasions only current occupational status: employed Travel in the last 8 weeks?: None Have you lived/traveled outside US in past 30 days?: No Contact w/someone who lives/traveled outside US past 30 days?: No Exposure to someone with infectious disease in past 14 days?: No Do you have a fever (greater than 100.4 F or 38 C)?: No Have you tested positive for COVID-19?: No Exposed to someone with COVID-19 in past 14 days?: No Do you have a sore throat?: No Do you have a cough?: No Do you have any weakness?: No Do you have any diarrhea?: No Are you experiencing any unusual bleeding?: No Do you have any muscle aches/pain?: No Do you have any abdominal pain?: No Are you experiencing loss of taste or smell?: No Other Medical History Have you received the Pneumonia Vaccine: No ROS Obtained: Yes Systems reviewed as appropriate & no additional complaints except as documented Physical Exam General General appearance: alert and in no apparent distress Head Head exam: atraumatic Eye Eye exam: Present normal appearance ENT ENT exam: Present normal external ear exam Neck Neck exam: Present full ROM Chest Chest inspection: Present symmetric chest wall rise Respiratory Respiratory exam: Present normal lung sounds bilaterally; Absent respiratory distress Cardiovascular Cardiovascular exam: Present regular rate and normal rhythm Abdominal Exam Abdominal exam: Present soft; Absent tenderness or guarding Extremities Exam Extremities exam: Present normal inspection and other (RLE: Abrasion with scabbing and surrounding erythema along the borders along the right lateral knee. Limited range of motion at the knee secondary to pain in this area. No swelling to the lower extremity. Pulses intact. Sensation grossly intact.) Back Exam Back exam: Present normal inspection Neurological Exam Neurological exam: Present alert and oriented X3 Psychiatric Psychiatric exam: Present normal affect Skin Skin exam: Present warm and dry Medical Decision Making Medical Records Screening: Per USPSTF and CDC recommendations, given the prevalence of disease in our region, it is our hospital?s policy to screen for HIV and viral Hepatitis for all patients aged 18 and over and those with ongoing risk factors. [place] Inquiry Pt receiving controlled substance: No Vital Signs: 11/23/24 22:36 11/24/24 00:31 Temperature 98.9 F 98.9 F Temperature Source Oral Oral Pulse Rate 89 Pulse Rate [Right Radial] 86 Respiratory Rate 16 16 Blood Pressure 106/72 L Blood Pressure [Left Arm] 120/82 Blood Pressure Mean [Left Arm] 94 Blood Pressure Source Automatic Cuff Blood Pressure Source [Left Arm] Automatic Cuff Blood Pressure Position Sitting Blood Pressure Position [Left Arm] Sitting 02 Sat by Pulse Oximetry 100 Oxygen Delivery Method Room Air Room Air Orders (Tests/Meds): ED MEDICATIONS Discontinued Medications Generic Name Dose Route Start Last Admin Trade Name Guillermoq PRN Reason Stop Dose Admin Acetaminophen 1,000 mg 11/23/24 22:33 11/23/24 22:44 Acetaminophen 500mg Tab PO 11/23/24 22:34 1,000 mg ONCE ONE Administration Ibuprofen 600 mg 11/23/24 22:33 11/23/24 22:44 Ibuprofen 600 Mg Tablet PO 11/23/24 22:34 600 mg ONCE ONE Administration ORDERS Category Date Time Status Knee XR right 2 views [XR knee RT 2V] Stat Exams 11/23/24 22:33 Completed Medical Decision Narrative: Nick Garvey is a 28-year-old female with a history of bipolar disorder who presents to the emergency department for a wound to her right knee. Patient states that she fell on concrete sidewalk 6 days ago and scraped her right knee. Over the last 1 to 2 days, she has had worsening pain to her right knee that radiates down her leg. She states that is difficult to bend knee due to the pain. She takes Tylenol and ibuprofen and last took it yesterday. She did not have it evaluated at the time of the incident. On arrival, patient is hemodynamically stable, afebrile, breathing comfortably on room air. Physical exam, as stated above, revealed overall well-appearing female in no distress. She has an abrasion over her right lateral knee with overlying scab. Borders of the wound appears somewhat erythematous but no swelling distally and pulses and sensation grossly intact distally. She has limited range of motion at the knee secondary to feeling tightness and pain over the scabbed area that shoots down her leg. Differential diagnosis includes, but is not limited to: Fracture, cellulitis, wound infection, abrasion, among others. Low concern for DVT as patient does not have any swelling. Workup in the emergency department included: Right knee x-ray. Patient was treated with Tylenol and ibuprofen orally for symptoms. X-ray imaging interpreted by me personally. No acute fracture or dislocation. see final radiology report for details. Given the erythema around the patient's wound, will treat out of abundance of caution with Keflex for possible cellulitis. Recommended Tylenol and ibuprofen for pain control. Patient will likely have pain from the wound until the scab completely heals. Return precautions were given. All questions were answered. She demonstrated understanding and was in agreement with this plan. She was then discharged with the emergency department in stable condition. Critical Care Critical Care Time Critical Care Time: No
[2024-11-24 00:31] VITALS: BP 106/72; PULSE 89; RESP 16; TEMP 37.2; O2SAT 98
== END 2024-11-24 00:32 | disposition home or self-care (01) ==
PROVIDERS: Emergency Provider Student in an Organized Health Care Education/Training Program; PCP Nurse Practitioner Family
DX: L03.115 Cellulitis of right lower limb (principal); S80.211A Abrasion, right knee, initial encounter; W10.1XXA Fall (on)(from) sidewalk curb, initial encounter; E03.9 Hypothyroidism, unspecified; F32.A Depression, unspecified; F41.9 Anxiety disorder, unspecified
CPT/HCPCS: 73560; 99283

== ENCOUNTER 2024-12-04 12:03 | Outpatient (CLI) | payer MEDICAID, SELFPAY ==
--- NOTE | 2024-12-04 12:07 | XR_ITS ---
FINAL REPORT CLINICAL HISTORY: BURSITIS OR RT KNEE COMPARISON: None FINDINGS: RIGHT KNEE 4 views demonstrate no acute fracture or dislocation. The joint spaces appear normal. No acute soft tissue abnormality is seen. IMPRESSION: No acute bony abnormality. Reviewed, Interpreted and Dictated by Kahlil Saucedo MD Transcribed by Bernadette Pan Authenticated and [facility]
== END 2024-12-04 23:59 | disposition home or self-care (01) ==
LOC: RAD 12:04
PROVIDERS: PCP Nurse Practitioner Family; Visit Provider Physician Assistant
DX: M70.51 Other bursitis of knee, right knee (principal)
CPT/HCPCS: 73562

== ENCOUNTER 2024-12-12 07:27 | Outpatient (CLI) | payer MEDICAID, SELFPAY ==
--- OUTSIDE RECORDS SUMMARY | 2017-06-11 04:35 | XMS_ITS | Continuity of Care Document ---
Author Organization [facility] Address [address] [place] [address] Phone Care Team Providers Care Sound Engineer Name Role Phone Branden Guaman MD Unavailable Unavailable Procedures Procedure Date URINE TEST Walk In Test Advance Directives Directive Yes / No Effective Date File Name No Information Encounters Encounter Description Practice Location Reason(s) For Visit Diagnoses Date Provider Providers Copied on Encounter [facility], [address] [place] [address], [id number], tel:[phone] [facility] Dept Walk in Test (chief complaint) Encounter for test, result negative Rowena Otero. [address] [place], [place], [id number], [place]. tel:[phone] Family History Family Member Type Diagnosis Age At Onset No Information Payers Payer name Insurance type Covered libertarian ID Authorlucas landis(s) Raysa [id number] Social History Type Description Quantity Date Captured Comments Alcohol Use Details Unknown Caffeine Use Details Unknown Tobacco Use Status No Information Smoking Status No Information Sex Female Gender Identity Female Chief Complaint And Reason For Visit From encounter dated '06/11/2017 08:35'. Walk in Test (chief complaint). Description: UPT negative. LMP 05/06/17. Last time patient had unprotected sex was reported to be on 06/05/17. Reccomended that patient use condoms in addition to BC pills and repeat test after 06/19. Patient has been using oral contraception for 4 y ears. Patient states she missed pills for 1 week in April estimated 05/09- 05/17. If repeat UPT is negative, patient desires to continue with BC pills. LEONEL Chung I. Reason For Referral Reason For Referral No Information Plan Of Treatment Date Type Action Status Future Order: Lab Order Urine Pr egnancy (URPREG), Appointment on: Ordered History Of Present Illness Encounter Date Complaint History Of Prese nt Illness Walk in Test UPT negat seferino. LMP 05/06/17. Last time patient had unprotected sex was reported to be on 06/05/17. Reccomended that patient use condoms in addition to BC pills and repeat test after 06/19. Patient has been using oral contraception for 4 years. Patient states she missed pills for 1 week in April estimated 05/09-05/17. If repeat UPT is negative, patient desires to continue with BC pills. LEONEL Chung I. Functional Status Date Functional Assessmen t No Information Instructions Date Instruction Additional Infor alma delia Discussed reproducti ve life planning, recommendation for preconception visit or BC options as needed, EC if indicated, and info about importance of folic acid prior to conception. LEONEL Chung I. Related to Encounter for test, result negative Assessments Type Assessment Date assessment Encounter for test, re sult negative Patient Care Teams Name Effective Dates (start - stop) Status Members No Information
--- OUTSIDE RECORDS SUMMARY | 2022-02-18 20:00 | XMS_ITS | Continuity of Care Document ---
Author Organization [facility] Address [address] [place] [address] Phone Care Team Providers Care Electronic Funds Transfer Coordinator Name Role Phone Unavailable Unavailable Unavailable Allergies, Adverse Reactions, Alerts Substance Reaction Status Criticality TRAMADOL HCL tramadol HCl Active No Information Medications Medication Instructions Dosage Effective Dates (start - stop) Status Comments ibuprofen .TAKE 1 TABLET BY MO UT EVERY 6 HOURS FOR PAIN - No Longer Active Results Test Name Date and Time Measure Units Reference Range Abnormal Flag Status Comments Panel Description: Not Available Final See Report 00:00:00 See Report Final Advance Directives Directive Yes / No Effective Date File Name No Information Encounters Encounter Description Practice Location Reason(s) For Visit Diagnoses Date Provider Providers Copied on Encounter [facility], [address] [place] [address], [id number], tel:[phone] ON Conversion No Information No Information Family History Family Member Type Diagnosis Age At Onset No Information Payers Payer name Insurance type Covered alliance party ID Authoriza tion(s) No Information Social History Type Description Quantity Date Captured Comments Sex Female Smoking Status No Information Chief Complaint And Reason For Visit No Information Reason For Referral Reason For Referral No Information History Of Present Illness Encounter Date Complaint History Of Prese nt Illness No Information Functional Status Date Functional Assessmen t No Information Medications Administered Medication Instructions Dosage Effective Dates (start - stop) Status Comments ibuprofen .TAKE 1 TABLET BY MO UT EVERY 6 HOURS FOR PAIN - No Longer Active Instructions Date Instruction Additional Infor mation No Information Assessments Type Assessment Date No Information Patient Care Teams Name Effective Dates (start - stop) Status Members No Information
--- OUTSIDE RECORDS SUMMARY | 2022-12-06 07:59 | XMS_ITS | Continuity of Care Document ---
Author Organization [facility] Address [address] [place] [address] Phone Care Team Providers Care Automobile Rental Representative Name Role Phone Demetrius DO Rik Unavailable [...] Diagnoses Date Provider Providers Copied on Encounter [facility], [address], [place], [place], [address] [place] [address], tel:[phone] OBIE-[place] No Information 3 Demetrius Elliott. [address] [place] [address], [place], [place], [address] [place] [address] , [place]. tel:[phone] [facility], [address], [place], [place], [id number], [place] tel:[phone] [place] (old) No Information 3 Demetrius Elliott. [address] [place] [address], [place] [address], [place], [place], [id number] , [place]. tel:[phone] Estab - Low (20-29) [facility], [address], [place], [place], [address] [place] [address], tel:[phone] [facility]OB-[place] (old) Consult (chief complaint) Fatigue 3 Demetrius Elliott. [address] [place] [address], Suite [facility], [place], [place], [address] [place] [address] , . tel:[phone] Preven Meds E&m Estab Pt; 18-39 [facility], [address], [place], [address] [place] [address], tel:[phone] [facility] [facility] (old) annual exam (chief complaint) Encounter for gynecological examination (general) (routine) without abnormal findings 2 Demetrius Elliott. [address] [place] [address], Suite [facility], [place], [place], [address] [place] [address] , . tel:[phone] [facility], [address], [place], [address] [place] [address], tel:[phone] [facility] [facility] (old) check (chief complaint) Encounter for screening for maternal depressionEncoun ter for routine follow-up 2 Demetrius Elliott. [address] [place] [address], Suite [facility], [place], [place], [address] [place] [address] , . tel:[phone] [facility], [address], [place], [place], [id number], tel:[phone] [facility] [facility] (old) incision check (chief complaint) Encounter for routine follow-up 2 Demetrius Elliott. [address] [place] [address], [address] [facility], [place], [address] [place] [address] , . tel:[phone] [facility], [address], [place], [place], [id number], tel:[phone] OBIE-[place] F/U from hospital (chief complaint)sti ll having contractions (chief complaint)thi nks she lost her mucus plug (chief complaint) No Information 2 Ivy Bai . [address] [place] [address], Suite [facility], [place], [place], [address] [place] [address] , [place]. tel: [phone] [facility], [address], [place], [address] [place] [address], [place] tel:[phone] [place] (old) Encntr for suprvsn of normal first preg, third [id number] weeks gestation of 2 Demetrius Elliott. [address] [place] [address], [address] [place] [address], [address] [place] [address] , . tel: [phone] [facility], [address], [place], [address] [place] [address], [place] tel:[phone] [facility]OB[facility] routine (chief complaint) Encntr for suprvsn of normal first preg, third [id number] weeks gestation of 2 Demetrius Elliott. [address] [place] [address], [address] [place] [address], [address] [place] [address] , . tel: [phone] [facility], [address], [place], [address] [place] [address], [place] tel:[phone] [place] (old) Encntr for suprvsn of normal first preg, third [id number] weeks gestation of 2 Demetrius Elliott. [address] [place] [address], [address] [place] [address], [address] [place] [address] , . tel: [phone] [facility], [address], [place], [address] [place] [address], [place] tel:[phone] [place] ([place]) Encntr for suprvsn of normal first preg, third [id number] weeks gestation of 2 Demetrius Elliott. [address] [place] [address], [address] [facility], [place], [address] [place] [address] , . tel: [phone] [facility], [address], [place], [place], [id number], [place] tel:[phone] [place] (old) Encntr for suprvsn of normal first preg, third [id number] weeks gestation of 2 Demetrius Elliott. [address] [place] [address], [address] [facility], [place], [address] [place] [address] , . tel: [phone] [facility], [address], [place], [address] [place] [address], tel:[phone] [place] (old) Encntr for suprvsn of normal first preg, third [id number] weeks gestation of 2 Demetrius Elliott. [address] [place] [address], [address] [facility], [place], [address] [place] [address] , . tel: [phone] [facility], [address], [place], [address] [place] [address], tel:[phone] [place] (old) Encntr for suprvsn of normal first preg, third [id number] weeks gestation of 2 Demetrius Elliott. [address] [place] [address], [place] [address], [place], [address] [place] [address] , . tel: [phone] [facility], [address], [place], [address] [place] [address], [place] tel:[phone] [place] (old) No Information 2 Demetrius Elliott. [address] [place] [address], [place] [address], [place], [address] [place] [address] , . tel: [phone] [facility], [address], [place], [address] [place] [address], [place] tel:[phone] [place] ([place]) Encntr for suprvsn of normal first preg, second [id number] weeks gestation of 2 Demetrius Elliott. [address] [place] [address], [place] [address], [place], [address] [place] [address] , . tel: [phone] [facility], [address], [place], [address] [place] [address], [place] tel:[phone] [place] (old) No Information 2 Demetrius Elliott. [address] [place] [address], Suite [facility], [place], [address] [place] [address] , . tel: [phone] [facility], [address], [place], [address] [place] [address], [place] tel:[phone] [place]OB-[place] routine (chief complaint) Encounter for supervision of other normal , second trimesterScreen for STD (sexually transmitted disease) 2 Ivy JARQUIN Bhumika . [address] [place] [address], Suite [facility], [place], [address] [place] [address] , [place]. tel: [phone] [facility], [address], [place], [address] [place] [address], tel:[phone] [place]-[place] No Information 2 Demetrius Elliott. [address] [place] [address], [place] [address], [place], [address] [place] [address] , . tel: [phone] [facility], [address], [place], [address] [place] [address], [place] tel:[phone] [facility] [facility] (old) Encounter for suprvsn of normal , second weeks gestation of 2 Demetrius Elliott. [address] [place] [address], [place] [address], [place], [address] [place] [address] , . tel: [phone] [facility], [address], [place], [address] [place] [address], tel:[phone] [facility]-[place] [facility] (old) Encntr for suprvsn of normal first preg, first [id number] weeks gestation of 2 Demetrius Elliott. [address] [place] [address], [place] [address], [place], [address] [place] [address] , . tel: [phone] Estab Pt Ob - Moderate (30-39) [facility], [address], [place], [address] [place] [address], tel:[phone] NEOB-[place] confirmed preg (chief complaint) Normal in first trimester 1 Slates BRITTON Bai . [facility] [facility], [address] [facility], [place], [address] [place] [address] , [place]. tel: [phone] [facility], [address], [place], [address] [place] [address], [place] tel:[phone] NEOB-[place] No Information 1 Demetrius Elliott. [facility], [place], [place], [address] [place] [address] , [place]. tel: [phone] [facility], [address], [place], [address] [place] [address], [place] tel:[phone] [place] ([place]) No Information 1 Slates BRITTON Bai . [address] [place] [address], Suite [facility], [place], [address] [place] [address] , . tel: [phone] Estab - Minimal (03-08) [facility], [address], [place], [address] [place] [address], [place] tel:[phone] [place] ([place]) irregular bleeding f/u (chief complaint) Irregular bleeding 1 Slates BRITTON Bai . [address] [place] [address], Suite [facility], [place], [address] [place] [address] , [place]. tel: [phone] [facility], [address], [place], [place], [id number], [place] tel:[phone] [place] ([place]) No Information 1 Slates BRITTON Bai . [address] [place] [address], Suite [facility], [place], [address] [place] [address] , [place]. tel: [phone] Estab - Minimal (03-08) [facility], [address], [place], [place], [id number], [place] tel:[phone] [place] ([place]) missed periods (chief complaint) Missed period 1 Slates BRITTON Bai . [address] [place], [place] [address], [address], [place], [place], [id number] , [place]. tel:[phone] Init Preven Meds E&m New Pt; 18-39 [facility], [address], [place], [place], [id number], [place] tel:[phone] [place] (old) annual exam (chief complaint) Encounter for gynecological examination (general) (routine) without abnormal findingsMissed periodPre-concep tion counselingScreen for STD (sexually transmitted disease) 1 Ivy BRITTON Bhumika . [facility] [facility], [address], [place], [place], [id number] , [place]. tel:[phone] Family History Family Member Type Diagnosis Age At Onset Father Problem Thyroid disease Mother Problem Diabetes mellitus Mother Problem hypertension Father Problem hypertension Father Problem hypercholesterolemia Immunizations Vaccine Date Status Comments Tdap administered Source: [facility] unization Record Payers Payer name Insurance type Covered libertarian ID Authoriza tibetzaida(s) [facility] ([facility]) [id number] Social History Type Description Quantity Date Captured [...] check pt. delivered vi a 11/[facility] at [facility].doing wellbaby is in the NICUshe had [...] period in apr. 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 she says that they are too hard to get into , so she doesn't want to go back. *works at [employer] and [employer]. Functional Status Date Functional Assessmen t No [...]
--- NOTE | 2024-12-12 07:29 | MR_ITS ---
FINAL REPORT TECHNIQUE: Multiplanar MR of the right knee without contrast CLINICAL HISTORY: RIGHT KNEE PAIN injury november 17 bilateral side pain to the right knee pt stated gives out COMPARISON: None FINDINGS: Articular cartilage: No focal defect Marrow signal: Extensive marrow edema of the anterior tibial plateau extending into the tibial tuberosity. Adjacent soft tissue edema is greater laterally suggesting bone and soft tissue contusion. Joint fluid: Small joint effusion. Menisci: Normal morphology without tear Ligaments: Collateral, cruciate and patellofemoral ligaments intact Tendons: Partial tear distal patellar tendon well seen on axial images 28-30 of the mid 3rd of the tendon. Underlying tendinitis is noted. Quadriceps tendon intact. IMPRESSION: Marrow edema anterior half of the tibial plateau compatible with significant bone contusion with adjacent soft tissue contusion. Some marrow edema may be reactive compatible with patellar tendon disease. Distal patellar tendinitis with small tear mid 3rd of the distal tendon. Reviewed, Interpreted and Dictated by Kahlil Saucedo MD Transcribed by Leesa Robbins Authenticated and . [facility]
== END 2024-12-12 23:59 | disposition home or self-care (01) ==
LOC: RAD 07:28
PROVIDERS: PCP Nurse Practitioner Family; Visit Provider Orthopaedic Surgery Adult Reconstructive Orthopaedic Surgery
DX: S76.111A Strain of right quadriceps muscle, fascia and tendon, initial encounter (principal); M76.51 Patellar tendinitis, right knee; R60.0 Localized edema
CPT/HCPCS: 73721

== ENCOUNTER 2025-05-13 14:14 | Outpatient (CLI) | payer MEDICAID, SELFPAY ==
--- NOTE | 2025-05-13 14:15 | XR_ITS ---
FINAL REPORT TECHNIQUE: 2 view chest CLINICAL HISTORY: cough COMPARISON: 02/06/2024 FINDINGS: No acute pulmonary density is evident. There is no evidence of effusion or other pleural disease. The mediastinum has a normal appearance. The cardiac silhouette is unremarkable. IMPRESSION: Unremarkable chest exam. Reviewed, Interpreted and Dictated by Kahlil Saucedo MD Transcribed by Jaki Hahn Authenticated and [facility]
--- OUTSIDE RECORDS SUMMARY | 2025-05-13 14:16 | XMS_ITS | Clinical Summary ---
Author Organization [facility] Address [address] [place] [address] Care Team Providers Care Environmental Health Specialist Name Role Phone Unavailable Primary Care Provider Unavailabl e Social History Tobacco Use Types Packs/Day Years Used Date Smoking Tobacco: Never Assessed Comments Unknown Sex and Gender Information Value Date Recorded Sex Assigned at Not on file Legal Sex Female 9:58 AM EDT Gender Identity Not on file Sexual Orientation Not on file Last Filed Vital Signs Vital Sign Reading Time Taken Comments Blood Pressure - - Pulse 112 09/08/2020 5:17 PM EDT Temperature 36.4 C (97.6 F) 09/08/2020 5:17 PM EDT Respiratory Rate - - Oxygen Saturation 98% 09/08/2020 5:17 PM EDT Inhaled Oxygen Concentration - - Weight - - Height - - Body Mass Index - - Plan of Treatment Not on file Medical Devices Not on file
== END 2025-05-13 23:59 ==
LOC: RAD 14:15
PROVIDERS: PCP Nurse Practitioner Family; Visit Provider Student in an Organized Health Care Education/Training Program
DX: R05.9 Cough, unspecified (principal)
CPT/HCPCS: 71046

== ENCOUNTER 2025-05-16 08:59 | Outpatient (CLI) | payer MEDICAID, SELFPAY ==
[2025-05-16 20:23] LABS: Coronavirus 19, PCR Not Detected (NotDetected); Influenza A, PCR Not Detected (NotDetected); Influenza B, PCR Not Detected (NotDetected)
== END 2025-05-16 23:59 | disposition home or self-care (01) ==
LOC: LAB.DROPOF 05-18 09:00
PROVIDERS: PCP Nurse Practitioner Family; Visit Provider Student in an Organized Health Care Education/Training Program
DX: R52 Pain, unspecified (principal)
CPT/HCPCS: 87631